=== PATIENT | female | born 1995 | race Caucasian/White ===

== ENCOUNTER 2019-08-04 17:22 | Emergency (ER) | payer OTHER, SELFPAY ==
--- NOTE | ~2019-08-04 | CT_ITS ---
EXAMINATION: CT abdomen pelvis wo con DATE: 08/04/2019 18:14 INDICATION: Left flank pain TECHNIQUE: Computed tomography (CT) of the abdomen and pelvis was performed without intravenous contr ast. Automated exposure control and iterative reconstruction technique were employed. The dose-length product was 1756.65 mGy-cm. COMPARISON: None FINDINGS: Lung bases are clear. Heart size is normal. No pericardial or pleural effusion. Liver, gallbladder, s pleen, pancreas and bilateral adrenal glands are normal. Bilateral kidneys and ureters are normal wit h no urolithiasis, hydroureteronephrosis or perinephric/ureteral stranding. Partially decompressed bl adder, anteverted uterus and bilateral adnexa are unremarkable. Bowels including the appendix are nor mal. No free intraperitoneal gas or fluid. No pathologically enlarged abdominal or pelvic lymphadenop athy. Multiple Schmorl's nodes in the lumbar and mid to lower thoracic spine. 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 IMPRESSION: 1. No urolithiasis or acute intra-abdominal/pelvic process. Reviewed, dictated and finalized at location A.
[2019-08-04 17:33] VITALS: BP 143/90; PULSE 80; RESP 15; TEMP 36.8; O2SAT 98
--- NOTE | 2019-08-04 17:33 | ED.ABDPAIN ---
HPI - Abdominal Pain General Chief Complaint: Abdominal Pain <Chester Iqbal PA-C - Last Filed: 08/04/19 18:57> Stated Complaint: abd pain <Chester Iqbal PA-C - Last Filed: 08/04/19 18:57> Time Seen by Provider: 08/04/19 17:33 <AMELIA Robles Last Filed: 08/04/19 18:57> Source: patient <Chester Iqbal PA-C - Last Filed: 08/04/19 18:57> Mode of arrival: ambulatory <Chester Iqbal PA-C - Last Filed: 08/04/19 18:57> Limitations: no limitations <Chester Iqbal PA-C - Last Filed: 08/04/19 18:57> History of Present Illness HPI narrative: Patient is a 23-year-old male who presents to emergency department for evaluation of generalized abdominal pain that began today has had similar occurrences in the past with recent hospitalization had upper EGD was sent home with Berta. Patient denies any diarrhea rectal bleeding melena notes he has had a few episodes of emesis patient in the room on arrival with mild discomfort of the abdomen patient otherwise in no distress patient notes that symptoms are worse with p.o. intake activity and movement <Chester Iqbal PA-C - Last Filed: 08/04/19 18:57> Related Data Allergies/Adverse Reactions: Allergies Allergy/AdvReac Type Severity Reaction Status Date / Time amoxicillin Allergy Unknown Nausea and Verified 12/11/18 19:24 Vomiting <Chester Iqbal PA-C - Last Filed: 08/04/19 18:57> Review of Systems Review of Systems: All systems reviewed & are unremarkable except as noted in HPI and below <Chester Iqbal PA-C - Last Filed: 08/04/19 18:57> [facility] Surgical History Surgical History: Surgical History (Updated 08/04/19 @ 17:34 by Chester Iqbal PA-C) History of endoscopy <AMELIA Robles Last Filed: 08/04/19 18:57> Social History Social History: Social History Gender identity (if verbalized by the patient): Female <AMELIA Robles Last Filed: 08/04/19 18:57> Exam Narrative: Exam Narrative: GENERAL: Well-appearing, well-nourished, and mild pain HEAD: Normocephalic, atraumatic. EYES: PERRLA and EOMI. ENT: Nares clear, no rhinorrhea or epistaxis. Mucous membranes moist. CHEST: Clear to auscultation. No respiratory distress. No wheezes rales or rhonchi HEART: Regular rate and rhythm. No murmur heard. Normal peripheral pulses. ABDOMEN: Soft, generalized tenderness, nondistended EXTREMITIES: Normal range of motion. No edema. SKIN: Warm, dry, no rash. NEURO: No focal deficits. Alert and oriented x3. Cranial nerves II through XII grossly intact PSYCH: Normal mood and affect. <AMELIA Robles Last Filed: 08/04/19 18:57> Course Course Emergency Course: Patient in the room at this time in no distress without high risk changes no vomiting after interventions feeling much better sleeping in the room for long. Patient notes he will get his medications filled and follow-up with his insurance claims processor provided with reasons to return and agrees to do so if symptoms worsen felt appropriate for outpatient reevaluation <AMELIA Robles Last Filed: 08/04/19 18:57> Vital Signs Vital signs: Vital Signs Temperature 98.2 F 08/04/19 17:33 Pulse Rate 80 08/04/19 17:33 Respiratory Rate 15 08/04/19 17:33 Blood Pressure 143/90 H 08/04/19 17:33 Pulse Oximetry 98 08/04/19 17:33 Temperature 98.2 F 08/04/19 17:33 Pulse Rate 70 08/04/19 19:04 Respiratory Rate 18 08/04/19 19:04 Blood Pressure 122/80 08/04/19 19:04 Pulse Oximetry 100 08/04/19 19:04 <AMELIA Robles Last Filed: 08/04/19 18:57> Vital Signs Temperature 98.2 F 08/04/19 17:33 Pulse Rate 80 08/04/19 17:33 Respiratory Rate 15 08/04/19 17:33 Blood Pressure 143/90 H 08/04/19 17:33 Pulse Oximetry 98 08/04/19 17:33 Temperature 98.2 F 08/04/19 17:33 Pulse Rate 70 06
[2019-08-04 17:41] LABS: Basophils Absolute Auto 0.1 K/mm3 (0.0-0.1); Basophils Percent Auto 0.7 % (0.2-1.2); Eosinophils Absolute Auto 0.2 K/mm3 (0-0.3); Eosinophils Percent Auto 1.5 % (0-4.4); Hematocrit 43.8 % (37.0-47.0); Hemoglobin 14.3 g/dL (12.0-15.0); Immature Granulocyte Absolute 0.03 K/mm3 (0.00-0.031); Immature Granulocyte Percent A 0.3 % (0-0.5); Lymphocytes Absolute Auto 2.61 K/mm3 (0.9-3.2); Mean Corpuscular HGB Conc 32.6 g/dl (32-36); Mean Corpuscular Volume 85.7 fl (80-100); Mean Platelet Volume 9.6 fl (7.4-10.4); Monocytes Absolute Auto 0.7 K/mm3 (0.1-0.6); Monocytes Percent Auto 6.3 % (2.6-8.5); Neutrophils Absolute Auto 7.3 K/mm3 (1.3-6.7); Neutrophils Percent Auto 67.2 % (45.5-73.1); Platelet Count Result 359 k/mm3 (150-375); Red Blood Count 5.11 M/mm3 (4.2-5.4); Red Cell Distribution Width 13.8 % (11.5-14.5); White Blood Count 10.9 K/mm3 (4.5-10.0)
[2019-08-04 17:49] LABS: Add Urine Microscopic? YES; Appearance Urine Clear (Clear); Bacteria Urine Trace /hpf; Bilirubin Urine Negative (Negative); Blood Urine Negative (Negative); Color Urine Yellow (Yellow); Glucose Urine UA Negative (Negative); Ketones Urine Negative (Negative); Leukocyte Esterase Ur 2+ LEU/UL (Negative); Mucus Urine Heavy /lpf; Nitrate Urine Negative (Negative); Protein Urine 1+ mg/dL (Negative); Renal Epithelial Cells Urine Rare /hpf (None Seen); Squamous Epithelial Cell Urine Many /hpf (Few); Urobilinogen Urine Negative mg/dL (<2.0)
[2019-08-04 17:52] LABS: Alanine Aminotransferase 25 U/L (4-35); Albumin Level 4.4 g/dL (3.5-5.1); Alkaline Phosphatase 69 U/L (38-126); Aspartate Amino Transferase 26 U/L (14-36); Bilirubin,Total 0.7 mg/dL (0.2-1.3); Blood Urea Nitrogen 10 mg/dL (7-17); Calcium 9.3 mg/dL (8.4-10.2); Carbon Dioxide 29 mmol/L (22-30); Chloride 105 mmol/L (98-107); Estimated CRCL calculation 133 ml/min; Estimated Glomerular Filt Rate > 60; Glucose 99 mg/dL (65-105); Lipase 92 U/L (23-300); Potassium 3.8 mmol/L (3.4-5.0); Sodium 139 mmol/L (137-145)
[2019-08-04 17:55] LABS: Specific Grav Ur 1.033 (1.001-1.035)
[2019-08-04] MEDS: SODIUM CHLORIDE 0.9% IV 1,000 ML 999 ML IV CONT (18:24)
[2019-08-04] MEDS: FAMOTIDINE 20 MG/2 ML VIAL IV PUSH (18:24)
[2019-08-04 18:27] VITALS: BP 108/74; PULSE 77; RESP 17; O2SAT 100
[2019-08-04] MEDS: AZITHROMYCIN 250 MG TABLET 1000 MG PO (19:02)
[2019-08-04] MEDS: metroNIDAZOLE 250 MG TABLET 2000 MG PO (19:03)
[2019-08-04 19:04] VITALS: BP 122/80; PULSE 70; RESP 18; O2SAT 100
--- NOTE | 2019-08-11 09:16 | PC.NURSE ---
LATE ENTRY This note is being entered to document information to the patient's record. The following information was omitted on 08/04/2019, by Livier Eldridge RN. 1000MLS/1 L NS infused, 0 Volume left in container. NS Stop time: 1854/DEBI WOODWARD.
== END 2019-08-04 19:15 | disposition home or self-care (01) ==
LOC: ANHED 17:40
PROVIDERS: Emergency Medicine; Emergency Medicine Emergency Medical Services; Emergency Provider Emergency Medicine
DX: R10.84 Generalized abdominal pain (principal)
CPT/HCPCS: 36415; 74176; 80053; 81001; 81025; 83690; 85025; 87070; 87086; 87088; 87491; 87591; 87808; 96365; 96368; 96375; 99284; A9270; J0131; J0696; J7030

== ENCOUNTER 2019-09-09 17:22 | Emergency (ER) | payer OTHER, SELFPAY ==
--- NOTE | ~2019-09-09 | XR_ITS ---
EXAMINATION: XR hand RT 2V INDICATION: Right hand pain TECHNIQUE: Two views of the right hand are obtained. COMPARISON: None available FINDINGS: There is no fracture, dislocation, or subluxation. The bones, soft tissues, and joint space s are normal. IMPRESSION: 1. No acute osseous abnormality. Reviewed, dictated and finalized at location A.
--- NOTE | ~2019-09-09 | XR_ITS ---
EXAMINATION: XR hip RT min 2V DATE: 09/09/2019 19:14 INDICATION: Right hip pain TECHNIQUE: Two views of the right hip were obtained. COMPARISON: None. FINDINGS: Bone alignment is normal. There is no fracture. The soft tissues are unremarkable. IMPRESSION: 1. No acute osseous abnormality. Reviewed, dictated and finalized at location A.
--- NOTE | ~2019-09-09 | XR_ITS ---
EXAMINATION: XR lumbar spine 2-3V DATE: 09/09/2019 19:15 INDICATION: Back pain after fall TECHNIQUE: Anteroposterior and lateral views of the lumbar spine, and cone-down lateral view of the l umbosacral junction were obtained. COMPARISON: None. FINDINGS: There is no fracture, dislocation, or subluxation. The vertebral body heights, alignment, a nd intervertebral disc spaces are normal. The paravertebral soft tissues are unremarkable. IMPRESSION: 1. No acute osseous abnormality. Reviewed, dictated and finalized at location A.
[2019-09-09 17:52] VITALS: BP 130/87; PULSE 80; RESP 18; TEMP 37; O2SAT 100
[2019-09-09 18:17] LABS: Add Urine Microscopic? YES; Appearance Urine Clear (Clear); Bacteria Urine Trace /hpf; Bilirubin Urine Negative (Negative); Blood Urine Negative (Negative); Color Urine Yellow (Yellow); Glucose Urine UA Negative (Negative); Ketones Urine Negative (Negative); Leukocyte Esterase Ur Negative LEU/UL (Negative); Mucus Urine Few /lpf; Nitrate Urine Negative (Negative); Protein Urine 1+ mg/dL (Negative); RBC Urine 0-2 /hpf (0-2); Squamous Epithelial Cell Urine Moderate /hpf (Few); WBC Urine 0-3 /hpf
[2019-09-09 18:19] LABS: Specific Grav Ur 1.031 (1.001-1.035)
--- NOTE | 2019-09-09 18:54 | PC.NURSE ---
x-RAY CALLED AT THIS TIME TO INFORM [employer] TECHNICIAN THAT PATIENT REFUSED HIP XRAY. PATIENT REPORTED RIGHT HIP PAIN AT TIME OF TRIAGE MULTIPLE TIMES DUE TO FALL YESTERDAY
--- NOTE | 2019-09-09 20:55 | PC.NURSE ---
pt to desk saying she will be back tomorrow.
== END 2019-09-09 20:15 | disposition left against medical advice (07) ==
LOC: ANHED 21:05
PROVIDERS: Emergency Provider Emergency Medicine; PCP Nurse Practitioner Women's Health
DX: Z53.21 Procedure and treatment not carried out due to patient leaving prior to being seen by health care provider (principal)
CPT/HCPCS: 72100; 73120; 73502; 81001; 81025; 99199

== ENCOUNTER 2021-03-25 14:37 | Emergency (ER) | payer OTHER, SELFPAY ==
--- NOTE | ~2021-03-25 | US_ITS ---
EXAMINATION: US OB <=14 wk fetus w TV DATE: 03/25/2021 16:08 INDICATION: Vomiting during first trimester . TECHNIQUE: Real-time pelvic ultrasound utilizing both a transvaginal and transabdominal probe was pe rformed. The interpreting radiologist was not present for the study. COMPARISON: None. FINDINGS: The uterus measures 9.7 x 6.5 x 6.0 cm. There is an intrauterine gestational sac. A yolk sac and fet al pole are identified. The crown rump length measures 1.7 cm, which correlates with an estimated ges tational age of 8 weeks and 0 days. heart motion is identified measuring 155 beats per minute ( bpm) by M-mode Doppler. The right and left ovaries are not visualized. There is no free fluid in the pelvis. IMPRESSION: 1. Single living fetus with heart of 155 bpm. 2. Gestational age by ultrasound of 8 weeks 0 day(s) +/- 5 day(s) with ultrasound estimated date of delivery (JENNIFER) of 11/04/2021. Reviewed, dictated and finalized at location A. OGRAPH OPERATOR IMPRESSION: 1. Single living fetus with heart of 155 bpm. 2. Gestational age by ultrasound of 8 weeks 0 day(s) +/- 5 day(s) with ultraso und estimated date of delivery (JENNIFER) of 11/04/2021.
[2021-03-25 14:45] VITALS: BP 128/81; PULSE 87; RESP 18; TEMP 37.1; O2SAT 100
--- NOTE | 2021-03-25 15:42 | ED.NAVMDI ---
HPI - Nausea/Vomiting/Diarrhea General Chief complaint: Nausea/Vomiting/Diarrhea <aNima Canales PA-C - Last Filed: 03/25/21 20:17> Stated complaint: vomiting <AMELIA Flannery Last Filed: 03/25/21 20:17> Time Seen by Provider: 03/25/21 15:03 <Naima Canales PA-C - Last Filed: 03/25/21 20:17> Source: patient <AMELIA Flannery Last Filed: 03/25/21 20:17> Mode of arrival: ambulatory <AMELIA Flannery Last Filed: 03/25/21 20:17> Limitations: no limitations <AMELIA Flannery Last Filed: 03/25/21 20:17> History of Present Illness HPI Narrative: This is a 25-year-old G1, P0 about 8 weeks by LMP that presents to the emergency department for nausea and vomiting over the last week. Reports she has been seen by Dr. Bernstein for this. He prescribed Zofran, she has not taken this yet as she has bad reactions to medications and was scared to. Also reports she has had some abnormal vaginal discharge. Denies fever, abdominal pain, dysuria, or vaginal bleeding. <Naima Canales PA-C - Last Filed: 03/25/21 20:17> Related Data Home medications: Home Medications Medication Instructions Recorded Confirmed vitamins-iron fumarate 65 1 tablet PO DAILY 03/17/21 03/17/21 mg iron-folic acid 1 mg tablet <AMELIA Flannery Last Filed: 03/25/21 20:17> Allergies/Adverse reactions: Allergies Allergy/AdvReac Type Severity Reaction Status Date / Time buspirone [From BuSpar] Allergy Mild Dizziness Verified 03/25/21 17:07 amoxicillin Allergy Unknown Nausea and Verified 03/25/21 17:07 Vomiting duloxetine [From Cymbalta] Allergy Hallucinati Verified 03/25/21 17:07 ng <AMELIA Flannery Last Filed: 03/25/21 20:17> Review of Systems Review of Systems: CONSTITUTIONAL: Denies fever GASTROINTESTINAL: Reports nausea and vomiting. Denies abdominal pain GENITOURINARY: Denies dysuria or hematuria. <Naima Canales PA-C - Last Filed: 03/25/21 20:17> All systems reviewed & are unremarkable except as noted in HPI and below <Naima Canales PA-C - Last Filed: 03/25/21 20:17> PMFSH Past Medical History Medical History: Medical History (Updated 03/25/21 @ 19:10 by Naima Canales PA-C) Anxiety and depression Major depressive disorder Suppression of menstruation <Naima Canales PA-C - Last Filed: 03/25/21 20:17> Surgical History Surgical History: Surgical History (Updated 03/17/21 @ 09:29 by Lydia Garner Nicole) History of endoscopy [place] teeth removed <Naima Canales PA-C - Last Filed: 03/25/21 20:17> Family History Family History: Family History (Updated 03/17/21 @ 09:31 by REIANLDO Raza) Mother Heart disease Other Ovarian carcinoma maternal aunt Grandparent Cerebrovascular accident maternal grandmother Acute myocardial infarction maternal grandmother <Naima Canales PA-C - Last Filed: 03/25/21 20:17> Social History Social History: Social History (Updated 03/17/21 @ 09:32 by Lydia Garner Nicole) Smoking status: Never smoker Alcohol intake: never Substance use: former Substance use type: marijuana Last use: 07/2020 Additional living arrangements comments: grandfather Gender identity (if verbalized by the patient): Female Sexual Orientation (if Verbalized by the Patient): Straight or Heterosexual <Naima Canales PA-C - Last Filed: 03/25/21 20:17> Exam Narrative: GENERAL: Well-appearing, well-nourished, and in no acute distress. HEAD: Normocephalic, atraumatic. EYES: EOMI. CHEST: Clear to auscultation. No respiratory distress. No wheezes rales or rhonchi HEART: Regular rate and rhythm. No murmur heard. Normal peripheral pulses. ABDOMEN: Soft, nontender, nondistended, normal active bowel sounds. No CVA tenderness EXTREMITIES: Normal range of motion. No edema. SKIN: Warm, dry, no rash. NEURO: No focal deficits.
[2021-03-25 16:40] LABS: Add Urine Microscopic? YES; Appearance Urine Clear (Clear); Bacteria Urine 1+ /hpf; Bilirubin Urine Negative (Negative); Color Urine Amber (Yellow); Glucose Urine UA Negative (Negative); Ketones Urine Trace mg/dL (Negative); Leukocyte Esterase Ur Trace LEU/UL (Negative); Mucus Urine Heavy /lpf; Nitrate Urine Negative (Negative); Protein Urine 1+ mg/dL (Negative); Specific Grav Ur 1.028 (1.001-1.035); Squamous Epithelial Cell Urine Many /hpf (Few)
[2021-03-25] MEDS: FAMOTIDINE 20 MG/2 ML VIAL IV PUSH (16:40)
[2021-03-25 16:44] LABS: Blood Urine Negative (Negative)
[2021-03-25 16:45] LABS: Basophils Percent Auto 0.3 % (0.2-1.2); Eosinophils Absolute Auto 0.2 K/mm3 (0-0.3); Hematocrit 44.5 % (37.0-47.0); Hemoglobin 14.8 g/dL (12.0-15.0); Immature Granulocyte Absolute 0.02 K/mm3 (0.00-0.031); Immature Granulocyte Percent A 0.2 % (0-0.5); Lymphocytes Absolute Auto 1.94 K/mm3 (0.9-3.2); Lymphocytes Percent Auto 21.7 % (18.3-44.2); Mean Corpuscular HGB Conc 33.3 g/dl (32-36); Mean Corpuscular Hemoglobin 28.7 pg (26-34); Mean Corpuscular Volume 86.4 fl (80-100); Mean Platelet Volume 8.9 fl (7.4-10.4); Monocytes Absolute Auto 0.7 K/mm3 (0.1-0.6); Monocytes Percent Auto 7.5 % (2.6-8.5); Neutrophils Absolute Auto 6.1 K/mm3 (1.3-6.7); Neutrophils Percent Auto 68.3 % (45.5-73.1); Platelet Count Result 308 k/mm3 (150-375); Red Blood Count 5.15 M/mm3 (4.2-5.4); Red Cell Distribution Width 13.4 % (11.5-14.5); White Blood Count 8.9 K/mm3 (4.5-10.0)
[2021-03-25] MEDS: SODIUM CHLORIDE 0.9% IV 1,000 ML 999 ML IV CONT (16:52)
[2021-03-25] MEDS: ONDANSETRON INJ 4 MG/2 ML VIAL IV PUSH (16:52)
[2021-03-25 16:54] LABS: Alanine Aminotransferase 36 U/L (4-35); Albumin Level 4.9 g/dL (3.5-5.1); Alkaline Phosphatase 68 U/L (38-126); Anion Gap 8 mmol/L (8-16); Aspartate Amino Transferase 39 U/L (14-36); Bilirubin,Total 0.9 mg/dL (0.2-1.3); Blood Urea Nitrogen 7 mg/dL (7-17); Calcium 9.8 mg/dL (8.4-10.2); Carbon Dioxide 22 mmol/L (22-30); Chloride 106 mmol/L (98-107); Estimated CRCL calculation 212 ml/min; Estimated Glomerular Filt Rate > 60; Glucose 86 mg/dL (65-110); Lipase 76 U/L (23-300); Potassium 3.8 mmol/L (3.4-5.0); Sodium 136 mmol/L (137-145)
[2021-03-25 17:14] VITALS: BP 104/62; BP 106/68; BP 106/88; PULSE 76; PULSE 86
--- NOTE | 2021-03-25 19:28 | PC.NURSE ---
patient refusing strep screen at this time. PA aware.
[2021-03-25 20:23] VITALS: BP 116/68; PULSE 77; RESP 16; TEMP 36.3; O2SAT 98
== END 2021-03-25 20:24 | disposition home or self-care (01) ==
PROVIDERS: Physician Assistant; Emergency Provider Emergency Medicine; PCP Physician Assistant
DX: O21.9 Vomiting of pregnancy, unspecified (principal); O98.811 Other maternal infectious and parasitic diseases complicating pregnancy, first trimester; B37.3 Candidiasis of vulva and vagina; R82.71 Bacteriuria; Z3A.08 8 weeks gestation of pregnancy
CPT/HCPCS: 36415; 76801; 76817; 80053; 81001; 81025; 83690; 84702; 85025; 87070; 87086; 87491; 87591; 87808; 96361; 96374; 96375; 99284; J2405; J7030

== ENCOUNTER 2021-03-30 14:03 | Outpatient (CLI) | payer OTHER, SELFPAY ==
[2021-03-30 15:36] LABS: Basophils Percent Auto 0.5 % (0.2-1.2); Eosinophils Absolute Auto 0.2 K/mm3 (0-0.3); Eosinophils Percent Auto 1.7 % (0-4.4); Hematocrit 45.2 % (37.0-47.0); Hemoglobin 14.2 g/dL (12.0-15.0); Immature Granulocyte Absolute 0.03 K/mm3 (0.00-0.031); Immature Granulocyte Percent A 0.3 % (0-0.5); Immature Platelet Fraction Pct 2.4 % (0.9-11.2); Lymphocytes Absolute Auto 2.24 K/mm3 (0.9-3.2); Lymphocytes Percent Auto 25.4 % (18.3-44.2); Mean Corpuscular HGB Conc 31.4 g/dl (32-36); Mean Corpuscular Hemoglobin 28.7 pg (26-34); Mean Corpuscular Volume 91.3 fl (80-100); Mean Platelet Volume 9.4 fl (7.4-10.4); Monocytes Absolute Auto 0.5 K/mm3 (0.1-0.6); Monocytes Percent Auto 6.1 % (2.6-8.5); Neutrophils Absolute Auto 5.8 K/mm3 (1.3-6.7); Platelet Count Result 308 k/mm3 (150-375); Red Blood Count 4.95 M/mm3 (4.2-5.4); Red Cell Distribution Width 13.6 % (11.5-14.5); White Blood Count 8.8 K/mm3 (4.5-10.0)
[2021-03-30 15:53] LABS: Hypochromasia 1+ (NORMAL); Platelet Estimate Adequate (Adequate)
[2021-03-30 16:29] LABS: HIV 1/2 Ab P24 Ag Result Negative (Negative)
[2021-03-30 16:56] LABS: Hepatitis B Surface Antigen Negative (Negative); Rubella IgG Antibody < 0.6 IU/ML
[2021-03-31 07:28] LABS: Rapid Plasma Reagin Non-Reactive (NonReactive)
[2021-04-01 11:35] LABS: CMV IgG Antibody <0.60 U/mL (<0.60)
[2021-04-12 15:46] LABS: CF Result NEGATIVE (NEGATIVE); Ethnicity NG
== END 2021-03-30 14:04 | disposition home or self-care (01) ==
LOC: ANHLAB 14:06
PROVIDERS: PCP Physician Assistant; Visit Provider Obstetrics & Gynecology
DX: N94.89 Other specified conditions associated with female genital organs and menstrual cycle (principal)
CPT/HCPCS: 36415; 81220; 84702; 85025; 85055; 86592; 86644; 86703; 86747; 86762; 86787; 86850; 86900; 86901; 87086; 87088; 87340; G0432

== ENCOUNTER 2021-03-31 10:51 | Outpatient (CLI) | payer OTHER, SELFPAY ==
[2021-03-31 13:30] LABS: Glucose 1 Hour PP 50gm Dose 77 mg/dL
== END 2021-03-31 10:52 | disposition home or self-care (01) ==
LOC: ANHLAB 10:53
PROVIDERS: PCP Physician Assistant; Visit Provider Obstetrics & Gynecology
DX: N94.89 Other specified conditions associated with female genital organs and menstrual cycle (principal)
CPT/HCPCS: 36415; 82947

== ENCOUNTER 2021-04-09 11:34 | Emergency (ER) | payer OTHER, SELFPAY ==
--- NOTE | ~2021-04-09 | US_ITS ---
EXAMINATION: US OB <= 14 weeks fetus DATE: 04/09/2021 15:33 INDICATION: Vaginal spotting TECHNIQUE: Real-time transabdominal obstetric ultrasound. FINDINGS: Comparison to multiple prior studies sequentially, with oldest reviewed study dated 2021. The uterus measures 10 x 6.4 x 6.6 cm. There is an intrauterine gestational sac, with pole iden tified. The crown rump length measures 3.18 cm which corresponds to 10 weeks 1 day gestational age.. . heart tones are identified measuring 165 bpm. No evidence for subchorionic hemorrhage. Ovar ies are not visualized. IMPRESSION: 1. SL IUP with an EGA of 10 weeks, 1 days (EDC by initial ultrasound of 11/04/2021). Reviewed, dictated and finalized at location A. NDER INSPECTOR AND TESTER IMPRESSION: 1. SL IUP with an EGA of 10 weeks, 1 days (EDC by initial ultrasound of 11/05/19 22).
[2021-04-09 11:51] VITALS: BP 113/68; PULSE 82; RESP 16; TEMP 36.6; O2SAT 98
[2021-04-09 12:29] LABS: Basophils Percent Auto 0.5 % (0.2-1.2); Eosinophils Absolute Auto 0.1 K/mm3 (0-0.3); Eosinophils Percent Auto 1.3 % (0-4.4); Hematocrit 43.7 % (37.0-47.0); Hemoglobin 14.5 g/dL (12.0-15.0); Immature Granulocyte Absolute 0.02 K/mm3 (0.00-0.031); Immature Granulocyte Percent A 0.3 % (0-0.5); Lymphocytes Absolute Auto 1.63 K/mm3 (0.9-3.2); Lymphocytes Percent Auto 21.4 % (18.3-44.2); Mean Corpuscular HGB Conc 33.2 g/dl (32-36); Mean Corpuscular Hemoglobin 28.7 pg (26-34); Mean Corpuscular Volume 86.4 fl (80-100); Mean Platelet Volume 9.2 fl (7.4-10.4); Monocytes Absolute Auto 0.4 K/mm3 (0.1-0.6); Monocytes Percent Auto 5.4 % (2.6-8.5); Neutrophils Absolute Auto 5.4 K/mm3 (1.3-6.7); Neutrophils Percent Auto 71.1 % (45.5-73.1); Platelet Count Result 298 k/mm3 (150-375); Red Blood Count 5.06 M/mm3 (4.2-5.4); Red Cell Distribution Width 13.9 % (11.5-14.5); White Blood Count 7.6 K/mm3 (4.5-10.0)
--- NOTE | 2021-04-09 12:40 | ED.FEMALEGU ---
HPI - Female Genitourinary General Chief complaint: Vaginal Bleeding Stated complaint: vb Time Seen by Provider: 04/09/21 11:51 Source: patient History of Present Illness HPI Narrative: 25-year-old female presents today with complaints of vaginal bleeding that she noted this morning. Patient states she woke up went to the bathroom and when she wiped there was some light pink on the toilet paper. This is happened to the patient x3 now. Patient also with abdominal cramping 4 out of 10. Related Data Home Medications Medication Instructions Recorded Confirmed vitamins-iron fumarate 65 1 tablet PO DAILY 03/17/21 03/17/21 mg iron-folic acid 1 mg tablet Allergies Allergy/AdvReac Type Severity Reaction Status Date / Time buspirone [From BuSpar] Allergy Mild Dizziness Verified 04/09/21 11:47 amoxicillin Allergy Unknown Nausea and Verified 04/09/21 11:47 Vomiting duloxetine [From Cymbalta] Allergy Hallucinati Verified 04/09/21 11:47 ng Review of Systems Constitutional: Constitutional: Reports as per HPI Cardiovascular: Cardiovascular: Reports no additional cardiovascular complaints Respiratory: Respiratory: Reports no additional respiratory complaints Gastrointestinal: Gastrointestinal: Reports abdominal pain (cramping) and Reports nausea Genitourinary: Genitourinary: Reports abnormal vaginal bleeding (Patient currently about 8 weeks per LMP) PMFSH Past Medical History Medical History Anxiety and depression Major depressive disorder Suppression of menstruation Surgical History Surgical History History of endoscopy [place] teeth removed Family History Family History Mother Heart disease Other Ovarian carcinoma maternal aunt Grandparent Cerebrovascular accident maternal grandmother Acute myocardial infarction maternal grandmother Social History Social History Smoking status: Never smoker Alcohol intake: never Substance use: former Substance use type: marijuana Last use: 07/2020 Additional living arrangements comments: grandfather Gender identity (if verbalized by the patient): Female Sexual Orientation (if Verbalized by the Patient): Straight or Heterosexual Exam Narrative: GENERAL: Well-appearing, well-nourished, and in no acute distress. HEAD: Normocephalic, atraumatic. EYES: PERRLA and EOMI. ENT: Nares clear, no rhinorrhea or epistaxis. Mucous membranes moist. Oropharynx without tonsillar hypertrophy exudate or other lesions. Bilateral TMs pearly ashby nonbulging NECK: Supple. No adenopathy or masses. No carotid bruits or JVD CHEST: Clear to auscultation. No respiratory distress. No wheezes rales or rhonchi HEART: Regular rate and rhythm. No murmur heard. Normal peripheral pulses. ABDOMEN: Soft, nontender, nondistended, normal active bowel sounds. : Pelvic exam: mold stripper presents. external genitalia with out lesions. Vagina: negative for discharge, negative for bleeding, Cervical os closed. Negative for cervical motion tenderness. EXTREMITIES: Normal range of motion. No edema. SKIN: Warm, dry, no rash. NEURO: No focal deficits. Alert and oriented x3. PSYCH: Normal mood and affect. Course Course Emergency Course: Patient without nausea after IVF and zofran. No bleeding noted during stay. See US results. Patient to be discharged home with zofran and to follow up with OB. Vital Signs Vital signs: Vital Signs Temperature 36.6 C 04/09/21 11:51 Pulse Rate 82 04/09/21 11:51 Respiratory Rate 16 04/09/21 11:51 Blood Pressure 113/68 04/09/21 11:51 Pulse Oximetry 98 04/09/21 11:51 Temperature 36.6 C 04/09/21 11:51 Pulse Rate 86 04/09/21 16:16 Respiratory Rate 17
[2021-04-09 13:39] LABS: Alanine Aminotransferase 20 U/L (4-35); Albumin Level 4.4 g/dL (3.5-5.1); Alkaline Phosphatase 59 U/L (38-126); Anion Gap 12 mmol/L (8-16); Aspartate Amino Transferase 24 U/L (14-36); Bilirubin,Total 0.6 mg/dL (0.2-1.3); Blood Urea Nitrogen 6 mg/dL (7-17); Calcium 9.8 mg/dL (8.4-10.2); Carbon Dioxide 21 mmol/L (22-30); Chloride 106 mmol/L (98-107); Estimated CRCL calculation 184 ml/min; Estimated Glomerular Filt Rate > 60; Glucose 87 mg/dL (65-110); Potassium 3.9 mmol/L (3.4-5.0); Sodium 139 mmol/L (137-145)
[2021-04-09] MEDS: LACTATED RINGERS 1,000 ML 999 ML IV CONT (14:13)
[2021-04-09 16:16] VITALS: BP 138/76; PULSE 86; RESP 17; O2SAT 99
== END 2021-04-09 16:17 | disposition home or self-care (01) ==
PROVIDERS: Emergency Medicine; Emergency Provider Nurse Practitioner Family; PCP Obstetrics & Gynecology
DX: O20.9 Hemorrhage in early pregnancy, unspecified (principal); O21.9 Vomiting of pregnancy, unspecified; Z3A.10 10 weeks gestation of pregnancy
CPT/HCPCS: 36415; 76801; 80053; 84702; 85025; 85461; 99284; J7120

== ENCOUNTER 2021-04-29 13:45 | Emergency (ER) | payer OTHER, SELFPAY ==
[2021-04-29 13:51] VITALS: BP 119/69; PULSE 71; RESP 18; TEMP 36.1; O2SAT 100
[2021-04-29 14:13] LABS: Basophils Percent Auto 0.4 % (0.2-1.2); Eosinophils Absolute Auto 0.1 K/mm3 (0-0.3); Eosinophils Percent Auto 1.6 % (0-4.4); Hematocrit 40.7 % (37.0-47.0); Hemoglobin 13.7 g/dL (12.0-15.0); Immature Granulocyte Absolute 0.02 K/mm3 (0.00-0.031); Immature Granulocyte Percent A 0.2 % (0-0.5); Lymphocytes Percent Auto 21.9 % (18.3-44.2); Mean Corpuscular HGB Conc 33.7 g/dl (32-36); Mean Corpuscular Hemoglobin 28.9 pg (26-34); Mean Corpuscular Volume 85.9 fl (80-100); Mean Platelet Volume 9.4 fl (7.4-10.4); Monocytes Absolute Auto 0.6 K/mm3 (0.1-0.6); Monocytes Percent Auto 7.8 % (2.6-8.5); Neutrophils Absolute Auto 5.6 K/mm3 (1.3-6.7); Neutrophils Percent Auto 68.1 % (45.5-73.1); Platelet Count Result 281 k/mm3 (150-375); Red Blood Count 4.74 M/mm3 (4.2-5.4); Red Cell Distribution Width 13.7 % (11.5-14.5); White Blood Count 8.2 K/mm3 (4.5-10.0)
[2021-04-29 14:25] LABS: Alanine Aminotransferase 25 U/L (4-35); Albumin Level 4.4 g/dL (3.5-5.1); Alkaline Phosphatase 54 U/L (38-126); Anion Gap 10 mmol/L (8-16); Aspartate Amino Transferase 28 U/L (14-36); Bilirubin,Total 0.5 mg/dL (0.2-1.3); Blood Urea Nitrogen 6 mg/dL (7-17); Carbon Dioxide 22 mmol/L (22-30); Chloride 106 mmol/L (98-107); Estimated CRCL calculation 235 ml/min; Estimated Glomerular Filt Rate > 60; Glucose 66 mg/dL (65-110); Lipase 73 U/L (23-300); Potassium 3.9 mmol/L (3.4-5.0); Sodium 138 mmol/L (137-145)
[2021-04-29 15:22] LABS: Add Urine Microscopic? YES; Amorphous Sediment Urine Moderate; Appearance Urine Turbid (Clear); Bacteria Urine Trace /hpf; Bilirubin Urine Negative (Negative); Blood Urine Negative (Negative); Color Urine Yellow (Yellow); Glucose Urine UA Negative (Negative); Ketones Urine Negative (Negative); Leukocyte Esterase Ur Trace LEU/UL (Negative); Mucus Urine Heavy /lpf; Nitrate Urine Negative (Negative); Protein Urine Negative (Negative); Squamous Epithelial Cell Urine Moderate /hpf (Few); WBC Urine 0-3 /hpf
[2021-04-29 15:24] LABS: Specific Grav Ur 1.033 (1.001-1.035)
[2021-04-29 16:05] VITALS: BP 110/72; PULSE 80; RESP 16; O2SAT 100
[2021-04-29] MEDS: SODIUM CHLORIDE 0.9% IV 1,000 ML 999 ML IV CONT (17:14)
--- NOTE | 2021-04-29 17:14 | PC.NURSE ---
Pt refusing promethazine because she googled the medication and is worried that it will cause respiratory depression in her baby. EDP notified and pt reassured the medication is safe. Pt still wishes to refuse and asks for zofran instead. EDP notified and zofran ordered.
[2021-04-29] MEDS: ONDANSETRON INJ 4 MG/2 ML VIAL IV PUSH (17:20)
--- NOTE | 2021-04-29 17:55 | ED.NAVMDI ---
HPI - Nausea/Vomiting/Diarrhea General Chief complaint: Nausea/Vomiting/Diarrhea Stated complaint: vomiting Time Seen by Provider: 04/29/21 16:06 History of Present Illness HPI Narrative: Patient is a 25-year-old female who presents ER with nausea and vomiting. Has had issues with this throughout her . She is [address] weeks [address] Bernstein. Reports she usually has to get fluid to help with her symptoms. She has not taken her antiemetics over the last day despite being nauseous. Reports she is having some left-sided chest discomfort that is worse with moving and direct palpation. Lateral to the breast. No difficulty breathing. No runny nose or sore throat cough. Patient reports she has a lot of anxiety about taking medications. Related Data Home Medications Medication Instructions Recorded Confirmed vitamins-iron fumarate 65 1 tablet PO DAILY 03/17/21 04/21/21 mg iron-folic acid 1 mg tablet Allergies Allergy/AdvReac Type Severity Reaction Status Date / Time buspirone [From BuSpar] Allergy Mild Dizziness Verified 04/21/21 08:57 amoxicillin Allergy Unknown Nausea and Verified 04/21/21 08:57 Vomiting duloxetine [From Cymbalta] Allergy Hallucinati Verified 04/21/21 08:57 ng Review of Systems Review of Systems: All systems reviewed & are unremarkable except as noted in HPI and below Constitutional: Constitutional: Denies chills, Denies fever(s) and Denies weakness ENT: Denies nasal congestion and Denies sore throat Cardiovascular: Cardiovascular: Reports chest pain, Denies rapid heart rate and Denies radiating jaw, neck or arm pain Respiratory: Respiratory: Denies cough and Denies dyspnea Gastrointestinal: Gastrointestinal: Denies abdominal pain, Reports nausea and Reports vomiting Genitourinary: Genitourinary: Denies abnormal vaginal bleeding, Denies nocturia, Denies dysuria and Denies flank pain PMFSH Past Medical History Medical History Anxiety and depression Major depressive disorder Suppression of menstruation Surgical History Surgical History History of endoscopy [place] teeth removed Family History Family History Mother Heart disease Other Ovarian carcinoma maternal aunt Grandparent Cerebrovascular accident maternal grandmother Acute myocardial infarction maternal grandmother Social History Social History (Reviewed 04/21/21 @ 08:59 by Lydia Garner [facility]) Smoking status: Never smoker Alcohol intake: never Substance use: former Substance use type: marijuana Last use: 07/2020 Additional living arrangements comments: grandfather Gender identity (if verbalized by the patient): Female Sexual Orientation (if Verbalized by the Patient): Straight or Heterosexual Exam Narrative: GENERAL: Well-appearing, well-nourished, and in no acute distress. HEAD: Normocephalic, atraumatic. CHEST: Clear to auscultation. No respiratory distress. TTP left chest wall with lateral compression. HEART: Regular rate and rhythm. Normal peripheral pulses. ABDOMEN: Soft, nontender, nondistended. EXTREMITIES: Normal range of motion. No edema. SKIN: Warm, dry, no rash. NEURO: Alert and oriented x3. PSYCH: Normal mood and affect. Course Course Emergency Course: Patient nervous about Phenergan because she thinks it could cause respiratory depression in her 13-week fetus. She is educated that that is not the case but she prefers to take Zofran anyways. Labs unremarkable. Patient hydrated. Antiemetics given. Discharge home. Vital Signs Vital signs: Vital Signs Temperature 97.0 F L 04/29/21 13:51 Pulse Rate 71 04/29/21 13:51 Respiratory Rate 18 04/29/21 13:51 Blood Pressure 119/69 04/29/21 13:51 Pulse Oximetry 100 04/29/21 13:51 Temperature 97.
[2021-04-29 18:16] VITALS: BP 105/64; PULSE 77; RESP 16; O2SAT 100
== END 2021-04-29 18:17 | disposition home or self-care (01) ==
PROVIDERS: Emergency Medicine; Emergency Provider Emergency Medicine; PCP Obstetrics & Gynecology
DX: O21.9 Vomiting of pregnancy, unspecified (principal); Z3A.13 13 weeks gestation of pregnancy
CPT/HCPCS: 36415; 80053; 81001; 83690; 85025; 96361; 96374; 99284; J2405; J7030

== ENCOUNTER 2021-05-04 15:05 | Outpatient (CLI) | payer OTHER, SELFPAY | END 2021-05-04 15:06 | disposition home or self-care (01) | LOC: ANHLAB 15:06 | PROVIDERS: PCP Obstetrics & Gynecology; Visit Provider Obstetrics & Gynecology | DX: N39.0 Urinary tract infection, site not specified (principal) | CPT/HCPCS: 87086 ==

== ENCOUNTER 2021-07-15 09:07 | Outpatient (CLI) | payer OTHER, SELFPAY ==
--- NOTE | ~2021-07-15 | US_ITS ---
EXAMINATION: US OB /maternal detail DATE: 07/15/2021 10:42 INDICATION: Previous survey performed at physician's office. Patient unable to complete survey. TECHNIQUE: Multiple obstetric sonographic images performed. FINDINGS: Comparison to multiple prior studies sequentially, with oldest reviewed study dated 022. There is a single living fetus in vertex presentation. The placenta is posterior without placenta pr evia. Amniotic fluid volume is normal. cardiac activity and movement is noted with a heart rate of 135 beats per minute. survey demonstrates normal cerebral ventricles, spine, diaphragm, stomach, kidneys, bladder, th ree-vessel cord and cord insertion. survey is limited for evaluation of cerebellum, cisterna ma gna, nuchal fold and four-chamber heart. The following biometric data were obtained: BPD: 61mm corresponds to gestational age 24 weeks 6 days. Head circumference: 223 mm corresponds to gestational age 24 weeks 6 days. Abdominal circumference: 194 mm corresponds to gestational age 24 weeks 1 days. Femur length: 49 mm corresponds to gestational age 26 weeks 2 days. Head circumference to abdominal circumference ratio: 1.17 (normal range for expected gestational age is 1.04-1.22). Estimated weight: 761 grams +/- 114 grams using Hadlock method, 85.7% by Hadlock method. IMPRESSION: 1: Single living intrauterine with an estimated gestational age of 24weeks 0days by initial ultrasound measurements, with an EDC of 11/04/2021 in vertex presentation. 2. Limited survey as described above. No anatomic abnormalities are identified. Recommen d follow-up attention to the intracranial structures, nuchal fold and four-chamber heart on subsequen t examination. Reviewed, dictated and finalized at location A. IMPRESSION: 1: Single living intrauterine with an estimated gestational age of 24 weeks 0days by initial ultrasound measurements, with an EDC of 11/04/2021 in carmella mima presentation. 2. Limited survey as described above. No anatomic abnormalities ar e identified. Recommend follow-up attention to the intracranial structures, nuc carl fold and four-chamber heart on subsequent examination.
== END 2021-07-15 09:08 | disposition home or self-care (01) ==
PROVIDERS: PCP Obstetrics & Gynecology; Visit Provider Obstetrics & Gynecology
DX: Z36.2 Encounter for other antenatal screening follow-up (principal); Z3A.24 24 weeks gestation of pregnancy
CPT/HCPCS: 76805

== ENCOUNTER 2021-07-29 10:11 | Outpatient (CLI) | payer OTHER, SELFPAY ==
--- NOTE | ~2021-07-29 | US_ITS ---
US OB limited 07/29/2021 10:48 Indication: Follow-up survey. Procedure: High-resolution Limited obstetrical ultrasound Comparison: 07/15/2021 Findings: There is a single living intrauterine in vertex presentation. Placenta is posteri or without previa. heart rate is 133 BPM. Limited survey demonstrates normal cerebral robert tricles, cerebellum, cisterna magna, nuchal fold and four-chamber heart. No anatomic abnormalit ies are seen. Impression: 1: Single living intrauterine in vertex presentation. 2: Normal limited survey. Reviewed, dictated and finalized at location B. Impression: 1: Single living intrauterine in vertex presentation. 2: Normal limited survey.
== END 2021-07-29 10:12 | disposition home or self-care (01) ==
LOC: ANHIMG 10:12
PROVIDERS: PCP Obstetrics & Gynecology; Visit Provider Obstetrics & Gynecology
DX: Z34.92 Encounter for supervision of normal pregnancy, unspecified, second trimester (principal); Z3A.25 25 weeks gestation of pregnancy
CPT/HCPCS: 76815

== ENCOUNTER 2021-08-12 14:04 | Outpatient (CLI) | payer OTHER, SELFPAY ==
[2021-08-12 15:49] LABS: Basophils Percent Auto 0.3 % (0.2-1.2); Eosinophils Absolute Auto 0.1 K/mm3 (0-0.3); Eosinophils Percent Auto 0.8 % (0-4.4); Hematocrit 34.1 % (37.0-47.0); Hemoglobin 11.1 g/dL (12.0-15.0); Immature Granulocyte Absolute 0.04 K/mm3 (0.00-0.031); Immature Granulocyte Percent A 0.4 % (0-0.5); Lymphocytes Absolute Auto 1.74 K/mm3 (0.9-3.2); Lymphocytes Percent Auto 18.8 % (18.3-44.2); Mean Corpuscular HGB Conc 32.6 g/dl (32-36); Mean Corpuscular Hemoglobin 28.6 pg (26-34); Mean Corpuscular Volume 87.9 fl (80-100); Mean Platelet Volume 10.1 fl (7.4-10.4); Monocytes Absolute Auto 0.5 K/mm3 (0.1-0.6); Monocytes Percent Auto 5.4 % (2.6-8.5); Neutrophils Absolute Auto 6.9 K/mm3 (1.3-6.7); Neutrophils Percent Auto 74.3 % (45.5-73.1); Platelet Count Result 248 k/mm3 (150-375); Red Blood Count 3.88 M/mm3 (4.2-5.4); Red Cell Distribution Width 13.6 % (11.5-14.5); White Blood Count 9.3 K/mm3 (4.5-10.0)
[2021-08-12 16:09] LABS: Glucose 1 Hour PP 50gm Dose 132 mg/dL
[2021-08-12 17:19] LABS: HIV 1/2 Ab P24 Ag Result Negative (Negative)
== END 2021-08-12 14:05 | disposition home or self-care (01) ==
LOC: ANHLAB 14:05
PROVIDERS: PCP Obstetrics & Gynecology; Visit Provider Obstetrics & Gynecology
DX: Z34.90 Encounter for supervision of normal pregnancy, unspecified, unspecified trimester (principal)
CPT/HCPCS: 36415; 82947; 85025; 86703; G0432

== ENCOUNTER 2021-08-19 22:40 | Observation (INO) | payer OTHER, SELFPAY ==
--- NOTE | 2021-08-19 22:40 | OBADM ---
This patient, Zoila Gonzalez, admitted to the OB room OB Post 115 for observation. Patient/family oriented to hospital policies and general routines including ID bracelet, bed and alarms, visiting hours, pain management, procedures, bathroom and other care routines, personal items, smoking policy, room service/diet, and visiting hours. Patient/Family are encouraged to report perceived risks to care and to ask questions if they do not understand what they are told or what they should do.
--- NOTE | 2021-08-19 22:40 | PC.NURSE ---
Patient arrived to OB unit. Patient come via personal vehicle from [facility] as a transfer. Patient reports nausea/emesis earlier this evening- reporting 2 total episodes of emesis. Patient states the second episode of emesis she noted pink tinge in emesis. Patient states she has history of hyperemesis in current that she takes zofran prescription for. Patient states that upon arrival to OB unit she does not have nausea. Patient state she felt cramping following episodes of emesis. Patient states that she currently does not have cramping and denies any contractions/tightening/pain/pressure. Patient abdomen palpates soft. Patient reports active movement and denies any vaginal bleeding. Patient states that she has a white creamy discharge that is causing itching. Patient reports that she has now noticed bumps on her left labia. Patient reports she is currently taking antibiotics for an ear infection. VSS.
[2021-08-19 23:00] VITALS: BP 96/51; PULSE 84; TEMP 36.7
[2021-08-19 23:01] VITALS: BP 105/45; PULSE 190
[2021-08-19 23:02] VITALS: BP 105/45; PULSE 190
[2021-08-19 23:03] VITALS: BMI 46.2
--- NOTE | 2021-08-19 23:08 | PC.NURSE ---
Updated Dr. Paris of patient arrival to OB unit. Patient complaint of previous episode of nausea/emesis that has resolved, cramping that is resolved at present and vaginal discharge/itching and bumps on labia. No contractions noted. FHT WNL for gestational age. Discharge orders received.
--- NOTE | 2021-08-19 23:22 | PC.NURSE ---
Discharge instructions reviewed with patient. Patient instructed to continue home medications as prescribed. Patient instructed to take pepcid at home for indigestion and to use Tioconazole for yeast infection. Patient states she will pear picker Tioconazole at [facility] and does not require a prescription. Patient instructed to call Dr. Rogers office to schedule follow-up appointment on Sunday. labor precautions reviewed. Patient states understanding of discharge instructions and follow-up instructions. Patient agreeable to discharge.
--- NOTE | 2021-08-20 01:58 | PM.OBTRLD ---
OB - Triage/Final Diagnosis Visit Information Reason for evaluation: other (cramping; nausea and vomiting) Comments/Additional reasons for admission: I have assessed the risk for this patient, Zoila Gonzalez, and determined that she would benefit from observation care. Evaluation Vital signs: Vital Signs - 24 hr 08/19/21 23:00 08/19/21 23:01 08/19/21 23:02 Temperature 98.1 F Pulse Rate 84 190 H 190 H Blood Pressure 96/51 L 105/45 L 105/45 L
== END 2021-08-19 23:27 | disposition home or self-care (01) ==
PROVIDERS: Admitting Provider Obstetrics & Gynecology Gynecology; Visit Provider Obstetrics & Gynecology Gynecology
DX: O26.893 Other specified pregnancy related conditions, third trimester (principal); R10.9 Unspecified abdominal pain; O21.9 Vomiting of pregnancy, unspecified; Z3A.29 29 weeks gestation of pregnancy
CPT/HCPCS: G0378; G0379

== ENCOUNTER 2021-09-01 19:55 | Observation (INO) | payer OTHER, SELFPAY ==
[2021-09-01 20:08] VITALS: BP 121/64; PULSE 95; BMI 45.5
--- NOTE | 2021-09-01 20:09 | LDADM ---
This patient, Zoila Gonzalez, was admitted to OB Post 117 on 09/01/21 at 19:55. Plans for labor, pain management and were discussed with patient. Patient/family oriented to hospital policies and general routines including ID bracelet, bed and alarms, visiting hours, pain management, procedures, bathroom and other care routines, personal items, smoking policy, room service/diet and guest tray routines, infant security routines, and visiting hours. Patient/Family are encouraged to report perceived risks to care and to ask questions if they do not understand what they are told or what they should do. See OBIX for further documentation.
[2021-09-01 20:15] VITALS: BP 121/73; PULSE 91
[2021-09-01] MEDS: LACTATED RINGERS 1,000 ML 999 ML IV CONT (20:35)
[2021-09-01] MEDS: ONDANSETRON INJ 4 MG/2 ML VIAL IV PUSH (20:38)
[2021-09-01 20:43] VITALS: PULSE 65; RESP 17; O2SAT 100
[2021-09-01] MEDS: FAMOTIDINE 20 MG/2 ML VIAL IV PUSH (20:51)
--- NOTE | 2021-09-02 08:59 | PM.OBTRLD ---
OB - Triage/Final Diagnosis Visit Information Comments/Additional reasons for admission: I have assessed the risk for this patient, Zoila Gonzalez, and determined that she would benefit from observation care. Evaluation Vital signs: Vital Signs - 24 hr 09/01/21 20:08 09/01/21 20:15 09/01/21 20:43 Pulse Rate 95 91 65 Respiratory Rate 17 Blood Pressure 121/64 121/73 Pulse Oximetry 100 Oxygen Delivery 09/01/21 20:45 09/01/21 20:45 Pulse Rate Respiratory Rate Blood Pressure Pulse Oximetry Oxygen Delivery Room Air Room Air Final Diagnosis (1) Hyperemesis affecting , antepartum: Code(s): O21.0 - Mild hyperemesis gravidarum Status: Acute
== END 2021-09-01 21:40 | disposition home or self-care (01) ==
PROVIDERS: Admitting Provider Obstetrics & Gynecology; Visit Provider Obstetrics & Gynecology
DX: O21.0 Mild hyperemesis gravidarum (principal); Z3A.31 31 weeks gestation of pregnancy
CPT/HCPCS: 59025; 96374; 96375; G0378; G0379; J2405; J7120

== ENCOUNTER 2021-09-16 10:28 | Outpatient (CLI) | payer OTHER, SELFPAY ==
[2021-09-16 11:02] VITALS: BP 109/72; PULSE 86
[2021-09-16 11:16] VITALS: BP 111/55; PULSE 82
[2021-09-16 11:19] LABS: Basophils Percent Auto 0.3 % (0.2-1.2); Eosinophils Absolute Auto 0.1 K/mm3 (0-0.3); Eosinophils Percent Auto 0.9 % (0-4.4); Hematocrit 34.8 % (37.0-47.0); Hemoglobin 11.6 g/dL (12.0-15.0); Immature Granulocyte Absolute 0.08 K/mm3 (0.00-0.031); Immature Granulocyte Percent A 0.7 % (0-0.5); Lymphocytes Absolute Auto 2.88 K/mm3 (0.9-3.2); Lymphocytes Percent Auto 24.6 % (18.3-44.2); Mean Corpuscular HGB Conc 33.3 g/dl (32-36); Mean Corpuscular Hemoglobin 29.2 pg (26-34); Mean Corpuscular Volume 87.7 fl (80-100); Mean Platelet Volume 10.2 fl (7.4-10.4); Monocytes Absolute Auto 0.7 K/mm3 (0.1-0.6); Monocytes Percent Auto 5.6 % (2.6-8.5); Neutrophils Percent Auto 67.9 % (45.5-73.1); Platelet Count Result 207 k/mm3 (150-375); Red Blood Count 3.97 M/mm3 (4.2-5.4); Red Cell Distribution Width 15.1 % (11.5-14.5); White Blood Count 11.7 K/mm3 (4.5-10.0)
[2021-09-16 11:21] LABS: Appearance Urine Slightly Cloudy (Clear); Bilirubin Urine Negative (Negative); Blood Urine Negative (Negative); Color Urine Yellow (Yellow); Glucose Urine UA Negative (Negative); Ketones Urine Negative (Negative); Leukocyte Esterase Ur Negative LEU/UL (NEGATIVE); Nitrate Urine Negative (Negative); Protein Urine Negative (Negative); Specific Grav Ur 1.025 (1.001-1.035); Urobilinogen Urine 0.2 mg/dL (<2.0)
[2021-09-16 11:32] LABS: Creatinine Urine 134.8 mg/dL; Total Protein Urine Random 11 mg/dL; Ur Ttl Prot Creatinine Ratio 0.08 mg/mg (0-0.20)
[2021-09-16 11:35] LABS: Alanine Aminotransferase 13 U/L (6-35); Albumin Level 3.7 g/dL (3.5-5.1); Alkaline Phosphatase 84 U/L (38-126); Anion Gap 8 mmol/L (8-16); Aspartate Amino Transferase 19 U/L (14-36); Bilirubin,Total 0.4 mg/dL (0.2-1.3); Blood Urea Nitrogen 5 mg/dL (7-17); Calcium 8.9 mg/dL (8.4-10.2); Carbon Dioxide 22 mmol/L (22-30); Chloride 107 mmol/L (98-107); Estimated Glomerular Filt Rate > 60; Glucose 109 mg/dL (65-110); Potassium 3.3 mmol/L (3.4-5.0); Sodium 137 mmol/L (137-145); Uric Acid 3.6 mg/dL (2.5-7.5)
[2021-09-16 11:58] LABS: Bacteria Urine Trace /hpf; Mucus Urine Rare /lpf; RBC Urine 0-2 /hpf (0-2); Squamous Epithelial Cell Urine Few /hpf (Few)
[2021-09-16 12:29] LABS: Add Urine Microscopic? NO
[2021-09-16 12:49] VITALS: BP 109/72; PULSE 92
== END 2021-09-16 11:43 | disposition home or self-care (01) ==
LOC: ANHOBOP 10:34 → ANHOBPP 10:35
PROVIDERS: Visit Provider Obstetrics & Gynecology
DX: O13.3 Gestational [pregnancy-induced] hypertension without significant proteinuria, third trimester (principal); Z3A.33 33 weeks gestation of pregnancy
CPT/HCPCS: 36415; 59025; 80053; 81003; 82570; 84156; 84550; 85025; 87086; 99199

== ENCOUNTER 2021-09-19 06:16 | Outpatient (CLI) | payer OTHER, SELFPAY ==
[2021-09-19 06:46] VITALS: BP 96/56; PULSE 79
[2021-09-19 07:00] VITALS: BP 100/72; PULSE 78
[2021-09-19 07:16] LABS: Basophils Percent Auto 0.3 % (0.2-1.2); Eosinophils Absolute Auto 0.1 K/mm3 (0-0.3); Eosinophils Percent Auto 1.3 % (0-4.4); Hematocrit 32.9 % (37.0-47.0); Hemoglobin 10.5 g/dL (12.0-15.0); Immature Granulocyte Absolute 0.07 K/mm3 (0.00-0.031); Immature Granulocyte Percent A 0.7 % (0-0.5); Lymphocytes Percent Auto 25.6 % (18.3-44.2); Mean Corpuscular HGB Conc 31.9 g/dl (32-36); Mean Corpuscular Hemoglobin 28.5 pg (26-34); Mean Corpuscular Volume 89.2 fl (80-100); Monocytes Absolute Auto 0.6 K/mm3 (0.1-0.6); Monocytes Percent Auto 5.8 % (2.6-8.5); Neutrophils Absolute Auto 6.7 K/mm3 (1.3-6.7); Neutrophils Percent Auto 66.3 % (45.5-73.1); Platelet Count Result 189 k/mm3 (150-375); Red Blood Count 3.69 M/mm3 (4.2-5.4); Red Cell Distribution Width 15.3 % (11.5-14.5); White Blood Count 10.2 K/mm3 (4.5-10.0)
[2021-09-19 07:25] LABS: Creatinine Urine 207.8 mg/dL
[2021-09-19 07:27] LABS: Alanine Aminotransferase 15 U/L (6-35); Albumin Level 3.4 g/dL (3.5-5.1); Alkaline Phosphatase 76 U/L (38-126); Anion Gap 11 mmol/L (8-16); Aspartate Amino Transferase 18 U/L (14-36); Bilirubin,Total 0.3 mg/dL (0.2-1.3); Blood Urea Nitrogen 5 mg/dL (7-17); Calcium 8.4 mg/dL (8.4-10.2); Carbon Dioxide 21 mmol/L (22-30); Chloride 106 mmol/L (98-107); Estimated Glomerular Filt Rate > 60; Glucose 135 mg/dL (65-110); Potassium 3.5 mmol/L (3.4-5.0); Sodium 138 mmol/L (137-145); Uric Acid 3.3 mg/dL (2.5-7.5)
[2021-09-19 08:01] LABS: Add Urine Microscopic? YES; Appearance Urine Slightly Cloudy (Clear); Bilirubin Urine 1+ (Negative); Blood Urine Negative (Negative); Color Urine Yellow (Yellow); Glucose Urine UA Negative (Negative); Ketones Urine Trace mg/dL (Negative); Leukocyte Esterase Ur Negative LEU/UL (NEGATIVE); Nitrate Urine Negative (Negative); Protein Urine Negative (Negative); Specific Grav Ur >= 1.030 (1.001-1.035); Urobilinogen Urine 0.2 mg/dL (<2.0)
[2021-09-19 08:04] LABS: Bacteria Urine Trace /hpf; Mucus Urine Few /lpf; Squamous Epithelial Cell Urine Many /hpf (Few)
[2021-09-19 08:20] LABS: Total Protein Urine Random < 5 mg/dL; Ur Ttl Prot Creatinine Ratio < 0.02 mg/mg (0-0.20)
--- NOTE | 2021-09-19 08:52 | PC.NURSE ---
Dr Bernstein notified of adm c/o swelling. Informed of Reactive NST, slight swelling and normal lab values. OK to ia home.
[2021-09-19 09:02] VITALS: BP 96/56; PULSE 75
== END 2021-09-19 09:02 | disposition home or self-care (01) ==
LOC: ANHOBOP 06:21 → ANHOBPP 06:24
PROVIDERS: Visit Provider Obstetrics & Gynecology
DX: O13.9 Gestational [pregnancy-induced] hypertension without significant proteinuria, unspecified trimester (principal); Z3A.00 Weeks of gestation of pregnancy not specified
CPT/HCPCS: 36415; 59025; 80053; 81001; 82570; 84156; 84550; 85025; 87086; 87088; 99199

== ENCOUNTER 2021-09-25 15:40 | Outpatient (CLI) | payer OTHER, SELFPAY ==
[2021-09-25 16:02] VITALS: BP 97/69; PULSE 90
[2021-09-25 16:15] VITALS: BP 102/54; PULSE 90; RESP 20; TEMP 36.5
[2021-09-25 16:17] VITALS: BP 102/54; PULSE 87
[2021-09-25 16:24] LABS: Basophils Percent Auto 0.3 % (0.2-1.2); Eosinophils Absolute Auto 0.1 K/mm3 (0-0.3); Eosinophils Percent Auto 0.7 % (0-4.4); Hemoglobin 11.4 g/dL (12.0-15.0); Immature Granulocyte Absolute 0.05 K/mm3 (0.00-0.031); Immature Granulocyte Percent A 0.5 % (0-0.5); Lymphocytes Absolute Auto 1.77 K/mm3 (0.9-3.2); Lymphocytes Percent Auto 15.9 % (18.3-44.2); Mean Corpuscular HGB Conc 32.6 g/dl (32-36); Mean Corpuscular Hemoglobin 28.5 pg (26-34); Mean Corpuscular Volume 87.5 fl (80-100); Mean Platelet Volume 10.2 fl (7.4-10.4); Monocytes Absolute Auto 0.6 K/mm3 (0.1-0.6); Monocytes Percent Auto 5.2 % (2.6-8.5); Neutrophils Absolute Auto 8.6 K/mm3 (1.3-6.7); Neutrophils Percent Auto 77.4 % (45.5-73.1); Platelet Count Result 197 k/mm3 (150-375); Red Cell Distribution Width 14.8 % (11.5-14.5); White Blood Count 11.1 K/mm3 (4.5-10.0)
[2021-09-25 16:28] LABS: Appearance Urine Slightly Cloudy (Clear); Bilirubin Urine Negative (Negative); Blood Urine Negative (Negative); Color Urine Yellow (Yellow); Glucose Urine UA Negative (Negative); Ketones Urine Trace mg/dL (Negative); Leukocyte Esterase Ur Trace LEU/UL (NEGATIVE); Nitrate Urine Negative (Negative); Protein Urine Negative (Negative); Urobilinogen Urine 0.2 mg/dL (<2.0)
[2021-09-25 16:30] VITALS: BP 106/66; PULSE 89
[2021-09-25 16:35] LABS: Alanine Aminotransferase 16 U/L (6-35); Albumin Level 3.7 g/dL (3.5-5.1); Alkaline Phosphatase 94 U/L (38-126); Anion Gap 10 mmol/L (8-16); Aspartate Amino Transferase 23 U/L (14-36); Bilirubin,Total 0.4 mg/dL (0.2-1.3); Blood Urea Nitrogen 4 mg/dL (7-17); Calcium 9.1 mg/dL (8.4-10.2); Carbon Dioxide 21 mmol/L (22-30); Chloride 103 mmol/L (98-107); Estimated Glomerular Filt Rate > 60; Glucose 131 mg/dL (65-110); Potassium 3.4 mmol/L (3.4-5.0); Sodium 134 mmol/L (137-145); Uric Acid 3.4 mg/dL (2.5-7.5)
[2021-09-25 16:40] LABS: Bacteria Urine 1+ /hpf; Mucus Urine Rare /lpf; Squamous Epithelial Cell Urine Few /hpf (Few)
[2021-09-25 16:41] LABS: Add Urine Microscopic? YES
== END 2021-09-25 16:52 | disposition home or self-care (01) ==
LOC: ANHOBOP 15:44 → ANHOBPP 15:44
PROVIDERS: Visit Provider Obstetrics & Gynecology
DX: O13.9 Gestational [pregnancy-induced] hypertension without significant proteinuria, unspecified trimester (principal); Z3A.00 Weeks of gestation of pregnancy not specified
CPT/HCPCS: 36415; 59025; 80053; 81001; 84550; 85025; 87086; 99199

== ENCOUNTER 2021-10-26 19:45 | Inpatient (IN) | payer OTHER, SELFPAY ==
[2021-10-26] VITALS (8 sets, daily range): BP systolic 110–121; BP diastolic 76–85; PULSE 84–103; TEMP 36.2–36.4; BMI 46.4
[2021-10-26] MEDS: LACTATED RINGERS 1,000 ML 125 ML IV CONT (21:40)
[2021-10-26 21:49] LABS: Basophils Percent Auto 0.2 % (0.2-1.2); Eosinophils Absolute Auto 0.1 K/mm3 (0-0.3); Eosinophils Percent Auto 1.2 % (0-4.4); Hematocrit 36.1 % (37.0-47.0); Hemoglobin 11.8 g/dL (12.0-15.0); Immature Granulocyte Absolute 0.08 K/mm3 (0.00-0.031); Immature Granulocyte Percent A 0.7 % (0-0.5); Lymphocytes Absolute Auto 2.25 K/mm3 (0.9-3.2); Lymphocytes Percent Auto 19.9 % (18.3-44.2); Mean Corpuscular HGB Conc 32.7 g/dl (32-36); Mean Corpuscular Hemoglobin 28.5 pg (26-34); Mean Corpuscular Volume 87.2 fl (80-100); Mean Platelet Volume 10.4 fl (7.4-10.4); Monocytes Absolute Auto 0.6 K/mm3 (0.1-0.6); Monocytes Percent Auto 5.7 % (2.6-8.5); Neutrophils Absolute Auto 8.2 K/mm3 (1.3-6.7); Neutrophils Percent Auto 72.3 % (45.5-73.1); Platelet Count Result 219 k/mm3 (150-375); Red Blood Count 4.14 M/mm3 (4.2-5.4); Red Cell Distribution Width 14.6 % (11.5-14.5); White Blood Count 11.3 K/mm3 (4.5-10.0)
--- NOTE | 2021-10-26 21:50 | LDADM ---
This patient, Zoila Gonzalez, was admitted to Labor/Delivery/Recovery 103 on 10/26/21 at 19:45. Plans for labor, pain management and were discussed with patient. Patient/family oriented to hospital policies and general routines including ID bracelet, bed and alarms, visiting hours, pain management, procedures, bathroom and other care routines, personal items, smoking policy, room service/diet and guest tray routines, security routines, and visiting hours. Patient/Family are encouraged to report perceived risks to care and to ask questions if they do not understand what they are told or what they should do. See OBIX for further documentation.
[2021-10-26] MEDS: OXYTOCIN 30 UNITS/NS 500 ML 30 UNITS/500 ML BAG 6 UNITS IV CONT (22:37)
[2021-10-26 22:40] LABS: HIV 1/2 Ab P24 Ag Result Negative (Negative)
[2021-10-27] VITALS (198 sets, daily range): BP systolic 63–141; BP diastolic 33–108; PULSE 43–251; RESP 16–18; TEMP 36.1–37.1; O2SAT 75–100
--- NOTE | 2021-10-27 02:32 | WPDANESEPP ---
Anes - Eval Pre Procedure Procedure: labor epidural Date/Time: 10/27/21 02:32 Surgeon: svitlana Preop Diagnosis: pain during labor Pre Op Diagnosis: IOL Patient Data Age: 25 Gender: F Height: 1.68 m Weight: 130.5 kg Last Vital Signs Temp 36.6 C 10/27/21 01:03 Pulse 75 10/27/21 02:31 BP 113/68 10/27/21 02:31 O2 Del Method Room Air 10/26/21 21:46 Allergies Allergy/AdvReac Type Severity Reaction Status Date / Time buspirone [From BuSpar] Allergy Mild Dizziness Verified 10/26/21 09:20 amoxicillin Allergy Unknown Nausea and Verified 10/26/21 09:20 Vomiting duloxetine [From Cymbalta] Allergy Hallucinati Verified 10/26/21 09:20 ng Home Medications Medication Instructions Recorded Confirmed Type vitamins-iron fumarate 65 1 tablet PO DAILY 03/17/21 10/26/21 History mg iron-folic acid 1 mg tablet ferrous sulfate 325 mg (65 mg 325 mg PO DAILY #30 tabs 08/16/21 10/26/21 Rx iron) tablet (Feosol) ondansetron 4 mg disintegrating 4 mg PO Q8H PRN nausea and 10/06/21 10/26/21 Rx tablet vomiting #14 tabs magnesium 200 mg tablet 200 mg PO DAILY 10/10/21 10/26/21 History Laboratory Tests 10/26/21 10/26/21 10/26/21 21:41 21:41 21:42 WBC 11.3 K/mm3 H K/mm3 (4.5-10.0) RBC 4.14 M/mm3 L M/mm3 (4.2-5.4) Hgb 11.8 g/dL L g/dL (12.0-15.0) Hct 36.1 % L % (37.0-47.0) MCV 87.2 fl fl (80-100) MCH 28.5 pg pg (26-34) MCHC 32.7 g/dl g/dl (32-36) RDW 14.6 % H % (11.5-14.5) Plt Count 219 k/mm3 k/mm3 (150-375) MPV 10.4 fl fl (7.4-10.4) Immature Gran % (Auto) 0.7 % H % (0-0.5) Neut % (Auto) 72.3 % % (45.5-73.1) Lymph % (Auto) 19.9 % % (18.3-44.2) Miller % (Auto) 5.7 % % (2.6-8.5) Eos % (Auto) 1.2 % % (0-4.4) Baso % (Auto) 0.2 % % (0.2-1.2) Lymph # (Auto) 2.25 K/mm3 K/mm3 (0.9-3.2) Miller # (Auto) 0.6 K/mm3 K/mm3 (0.1-0.6) Eos # (Auto) 0.1 K/mm3 K/mm3 (0-0.3) Baso # (Auto) 0.0 K/mm3 K/mm3 (0.0-0.1) Abs Immat Gran (auto) 0.08 K/mm3 H K/mm3 (0.00-0.031) Absolute Neuts (auto) 8.2 K/mm3 H K/mm3 (1.3-6.7) Absolute Nucleated RBC 0.0 K/mm3 K/mm3 (0.0-0.012) Nucleated RBC % 0.0 % % (0.0-0.2) RPR Pending HIV 1&2 Ab/P24 Ag 4thGn Blood Type A Positive Antibody Screen Negative 10/26/21 21:42 WBC RBC Hgb Hct MCV MCH MCHC RDW Plt Count MPV Immature Gran % (Auto) Neut % (Auto) Lymph % (Auto) Miller % (Auto) Eos % (Auto) Baso % (Auto) Lymph # (Auto) Miller # (Auto) Eos # (Auto) Baso # (Auto) Abs Immat Gran (auto) Absolute Neuts (auto) Absolute Nucleated RBC Nucleated RBC % RPR HIV 1&2 Ab/P24 Ag 4thGn Negative (Negative) Blood Type Antibody Screen Patient hx anesthesia problems: none Family hx anesthesia problems: none Results Review: All pre-operative results and documents have been reviewed as part of the pre-operative evaluation. [facility] Past Medical History Medical History (Updated 10/27/21 @ 02:33 by Nicole Mock, ALONSO) Anxiety and depression Major depressive disorder Morbid obesity with BMI of 45.0-49.9, adult Suppression of menstruation Surgical History Surgical History History of endoscopy [place] teeth removed Family History Family History (Updated 10/10/21 @ 14:42 by Delaney Robles RN) Mother Heart disease Other Ovarian carcinoma maternal aunt Grandparent Acute myocardial infarction maternal grandmother Cerebrovascular accident maternal grandmother Heart disease History of open heart
[2021-10-27] MEDS: ONDANSETRON INJ 4 MG/2 ML VIAL IV PUSH ×2 (05:31→20:05)
[2021-10-27] MEDS: LACTATED RINGERS 1,000 ML 125 ML IV CONT ×3 (05:42→09:19)
[2021-10-27 07:56] LABS: Rapid Plasma Reagin Non-Reactive (NonReactive)
--- NOTE | 2021-10-27 14:26 | WPDHPUPDATE1 ---
History and Physical Update Update Date/Time: 10/27/21 14:26 History and Physical has been reviewed, including an updated exam of the patient. There are NO changes in the patient's condition. Risks, benefits, and alternatives have been discussed and questions answered. Patient agrees to proceed with procedure.
--- NOTE | 2021-10-27 14:26 | WPDOBADMIT ---
Obstetrics - Admit Note Admission Note: record reviewed. No pertinent additions to the history and/or any subsequent changes in the physical findings that are not consistent with the expected course of the were found. Additions to the history and/or subsequent changes in the physical findings follow. None.
--- NOTE | 2021-10-27 14:26 | PM.OBPRVD ---
OB - Delivery Note Procedure Induction method: Per Pitocin Protocol Delivery augmentation: Rupture of Membranes Delivery monitor: External FHT and Internal FHT Route of delivery: Episiotomy description: None Laceration Description: Perineal - 2nd Degree Delivery repair: chromic Specimen: No Quantitative Blood Loss (ml): 350 Anesthesia type: Epidural Disposition: Floor Complications: none Narrative: Patient prepped in usual manner for this procedure. Maternal expulsive efforts readily delivered vertex with nuchal cord noted. Rest of baby delivered cord clamped cut and placenta delivered spontaneously. Uterus was well contracted. Second-degree vaginal wall laceration was noted approximated using 2-0 chromic in a running interlocking manner with good approximation and hemostasis noted. At this point the procedure was considered terminated with immediate postoperative condition of mother and baby both excellent. Baby Weeks of gestation at delivery: 39 gender: Male Weight (pounds): 7 Weight (ounces): 1 presentation: vertex Placenta delivery description: Spontaneous Cord Vessel Description: 3 Vessels score one minute: 8 score five minutes: 9 AMG Delivery Billing Delivery Delivery: Delivery Charge
[2021-10-27] MEDS: OXYTOCIN 30 UNITS/NS 500 ML 30 UNITS/500 ML BAG 125 UNITS IV CONT (14:30)
--- NOTE | 2021-10-27 18:45 | PC.NURSE ---
Patient transferred to post room #286 via wheelchair. Support person, Uriel, present. Oriented to unit, room, information board, rooming in, admission packet and security measures. Patient verbalizes understanding.
[2021-10-27] MEDS: DOCUSATE SODIUM 100 MG CAPSULE PO (18:57)
[2021-10-27] MEDS: IBUPROFEN 600 MG TABLET PO (18:58)
[2021-10-27] MEDS: LANOLIN (LANSINOH) 7.5 GM CREAM 1 APPLIC TOPICAL (21:15)
--- NOTE | 2021-10-27 21:15 | PC.NURSE ---
Breast pump provided due to separation from infant in level II nursery. Instructions given on cleaning, care, usage, that there should be no pain, pumping schedule for milk production, collection, and storage of human milk. Patient was assessed for correct placement, 24mm flange size, to pump for comfort and nipple stretching/stimulation for adequate milk production every 3 hours (8 times in 24 hours) for 15-20 minutes. Mother voiced understanding of the education shared along with mom and baby guide for additional resource information. Pt requesting to use her own home Motif pump. Offered to initiate pumping upon arrival to division at 1845 and pt requested to wait until after she showered and was able to visit with her visitor and get settled into room.
[2021-10-28 04:00] VITALS: BP 100/58; PULSE 80; RESP 18; TEMP 36.4; O2SAT 98
[2021-10-28] MEDS: IBUPROFEN 600 MG TABLET PO (05:13)
[2021-10-28 05:30] LABS: Hemoglobin 10.7 g/dL (12.0-15.0)
--- NOTE | 2021-10-28 06:17 | PM.OBPNVD ---
OB - PN: Subj Subjective Date/time seen: 10/28/21 06:17 Narrative: PPD#1 Zoila reports doing well today. Her bleeding is light. Her pain is controlled. She is tolerating regular diet, voiding, passing gas, and ambulating without issues. She is pumping. Her son was transferred overnight for respiratory distress. OB - PN: Obj Data Labs CBC & Chem 7: 10/28/21 05:08 Labs: Laboratory Results - last 24 hr 10/26/21 10/28/21 21:42 05:08 Hgb 10.7 L Hct 32.0 L RPR Non-reactive OB - PN A/P Assessment and Plan (1) Normal vaginal delivery: Code(s): O80 - Encounter for full-term uncomplicated delivery Status: Acute Plan day: 1 Plan: routine care and discharge home Comments: - Pelvic rest; take meds as prescribed - ER return precautions: fever, n/v/abd pain, bleeding, HTN Time Spent With Patient Time: Total time spent is greater than 50% in coordination of care (as documented) at patient's floor/unit and/or counseling patient: Review of Systems Constitutional: Constitutional: Denies chills, Denies fever(s) and Denies headache(s) Eyes: Eyes: Denies change in vision ENT: Denies dizziness and Denies headache(s) Cardiovascular: Cardiovascular: Denies chest pain, Denies palpitations and Denies dyspnea Respiratory: Respiratory: Denies cough and Denies dyspnea Gastrointestinal: Gastrointestinal: Denies nausea and Denies vomiting Neurologic: Denies dizziness and Denies headache(s) Endocrine: Endocrine: Denies palpitations Exam Const: General: cooperative, comfortable and no acute distress Orientation/consciousness: patient oriented x3 Resp: Effort & Inspection: normal respiratory effort Auscultation: clear to auscultation bilaterally Cardio: Rate: regular rate GI: Inspection: non-distended GI Palp: No abdominal tenderness and Yes Soft to palpation Auscultation: normal bowel sounds : Other: fundus firm Skin: General skin exam: normal color Neuro: General: patient oriented x3 Extrem: General: normal to inspection Psych: Appearance: grossly normal Affect: normal affect Attitude: cooperative
[2021-10-28 08:10] VITALS: BP 120/71; PULSE 74; RESP 16; TEMP 36.2; O2SAT 100
[2021-10-28] MEDS: DOCUSATE SODIUM 100 MG CAPSULE PO (09:36)
[2021-10-28] MEDS: BENZOCAINE 20% AER SPR (*SP) 56 GM CAN 1 SPRAY TOPICAL (09:36)
[2021-10-28] MEDS: WITCH HAZEL 40 PADS 1 PAD TOPICAL (09:36)
[2021-10-28] MEDS: MEASLES,MUMPS,RUBELLA VACCINE 0.5 ML VIAL SUB-Q (09:38)
--- NOTE | 2021-10-28 10:16 | PC.NURSE ---
Report received from primary RN that patient has initiated pumping for her that had been transferred to [facility], other pumped 4-6 mls of breast milk and flange fitting is appropriate per Debo WOODWARD.
--- NOTE | 2021-10-28 11:05 | PC.NURSE ---
0990 Patient was given the opportunity to view the discharge video Mother & Baby Care, The First Two Weeks and to ask questions. Patient declined viewing the video and has been given the mother/baby guide for home reference. Will watch it at home.
--- NOTE | 2021-10-31 10:03 | PM.OBDSVD ---
DS: Admitting Diagnosis Discharge Date 10/28/21 Admitting Diagnosis induction of labor DS: Discharge Diagnosis Discharge Diagnosis (1) Normal vaginal delivery: Code(s): O80 - Encounter for full-term uncomplicated delivery Status: Acute OB - DS: Summary OB Procedures : Ultrasound OB Procedures Intrapartum: Spontaneous Vag Delivery OB Procedures: : None Peripartum Data Infant Delivery Method: Natural Vaginal Laceration Description: Perineal - 2nd Degree complications: none [place] 1: Gender: Male Disposition of : NICU Status at Discharge Functional status at discharge: independent ambulation Overall status at discharge: patient is back to baseline Time Spent with Patient Time attestation: Total time spent providing and/or coordinating discharge services: Time spent: Less than 30 minutes Exam Const: General: cooperative, comfortable and no acute distress Orientation/consciousness: patient oriented x3 Resp: Effort & Inspection: normal respiratory effort Auscultation: clear to auscultation bilaterally Cardio: Rate: regular rate GI: Inspection: non-distended GI Palp: No abdominal tenderness and Yes Soft to palpation Auscultation: normal bowel sounds : Other: fundus firm Skin: General skin exam: normal color Neuro: General: patient oriented x3 Extrem: General: normal to inspection Psych: Appearance: grossly normal Affect: normal affect Attitude: cooperative Discharge Plan Discharge Attending physician on discharge: Haylie Santos Discharging Clinician: Haylie Santos Anticipated Discharge Date/Time: 10/28/21 09:00 Patient Disposition: Home, Self-Care Activity: may shower and pelvic rest Diet: regular Discharge Instructions: Education: Mom and Baby Guide Given to: Mother Follow-Up: Call your delivering provider's office for an appointment to be seen in: 4 Weeks Mom and baby should come to the [facility] for the follow-up appointment. Appointment Date/Time: Sunday, October 31, 2021 at 11:00 am What to expect at your follow-up visit: Physical Assessment Call [phone] if you are unable to keep your appointment time. BREAST CARE: * Wear a snug supportive bra. * For engorgement discomfort: Breast Feeding: * Apply warm moist washcloths * Express milk as needed to relieve engorgement * Wear loose clothing * For sore nipples: * Identify correct latch-on * Apply warm moist washcloths before and after nursing * Air dry nipples after nursing * May apply Lansinoh cream to nipples EPISIOTOMY/PERINEAL CARE: * Until bleeding stops, use your paty bottle after urinating * Change your pad frequently throughout the day * You may take sitz baths several times a day (fill your bathtub with warm water and soak for 20 minutes.) Do NOT bathe in the water * No tub baths until seen by your physician - You may shower ACTIVITY: * Rest as much as possible. * Do not exercise or lift anything heavier than your baby (such as laundry or other children.) * Avoid stairs or driving as much as possible. * Do not put anything into the vagina. No douching, tampons, or sexual activity until seen by physician. NOTIFY PHYSICIAN IF YOU HAVE ANY QUESTIONS OR IF ANY OF THE FOLLOWING SYMPTOMS OCCUR: * If your episiotomy or incision becomes red, swollen, or more painful than what you have experienced in the hospital. * If your vaginal bleeding becomes foul smelling. * If your vaginal bleeding becomes more heavy than a period or if your bleeding changes from pink to bright red. However, you may pass an occasional walnut-sized clot once or twice for the first week . * If you experience a sharp, shooting pain in you calves. * If you discover a hard, reddened area on your breast or if you experience flu-like symptoms.
[2021-10-31 11:14] VITALS: BP 116/82; PULSE 117; RESP 20; TEMP 36.8; O2SAT 99
== END 2021-10-28 10:35 | disposition home or self-care (01) | DRG 560 ==
LOC: ANHLDR 10-27 09:50 → ANHOB2 10-28 06:19 → ANHLDR 10-31 12:48 → ANHOB2 10-31 12:48
PROVIDERS: Admitting Provider Obstetrics & Gynecology; Visit Provider Obstetrics & Gynecology
DX: O76 Abnormality in fetal heart rate and rhythm complicating labor and delivery (principal); O69.81X0 Labor and delivery complicated by cord around neck, without compression, not applicable or unspecified; O70.1 Second degree perineal laceration during delivery; Z3A.39 39 weeks gestation of pregnancy; Z37.0 Single live birth
CPT/HCPCS: 36415; 85014; 85018; 85025; 86592; 86703; 86850; 86900; 86901; 90710; A9270; G0432; J2405; J2590; J2795; J7120

== ENCOUNTER 2022-01-25 11:02 | Emergency (ER) | payer OTHER, SELFPAY ==
--- NOTE | ~2022-01-25 | CT_ITS ---
EXAMINATION: CT abdomen pelvis w con DATE: 01/25/2022 13:56 INDICATION: Abdominal pain, vomiting TECHNIQUE: Computed tomography (CT) of the abdomen and pelvis was performed with 100 CC Omnipaque 350 intravenous contrast. Automated exposure control and iterative reconstruction technique were employe d. Exam dose: 1686.89 mGy-cm total exam DLP. COMPARISON: 08/04/2019 CT abdomen pelvis FINDINGS: Occasional pleural-based nodular densities measuring up to 5 mm, likely benign. No infiltra te or consolidation at the lung bases. Normal heart size. No pericardial or pleural effusion. The liver, gallbladder, bile ducts, spleen, pancreas, pancreatic duct, and adrenal glands and kidneys are unremarkable. No renal mass lesion or urinary tract calculus or hydroureteronephrosis is detecte d. The urinary bladder, uterus and adnexal areas are unremarkable. Normal caliber of the abdominal aorta. No intraperitoneal or retroperitoneal or pelvic mass lesion or adenopathy or ascites. No bowel obstruction, bowel wall thickening, pneumatosis or intraperitoneal free air. Normal appendix . Small fat-containing umbilical hernia. Included skeletal structures are unremarkable. IMPRESSION: Normal appendix; no significant abnormality of the abdomen or pelvis Reviewed, dictated and finalized at [facility]. Reviewed, dictated and finalized at location B. PHONE MAINTAINER IMPRESSION: Normal appendix; no significant abnormality of the abdomen or pelv is
[2022-01-25 11:24] VITALS: BP 103/89; PULSE 82; RESP 14; O2SAT 98
[2022-01-25 11:45] LABS: Basophils Absolute Auto 0.1 K/mm3 (0.0-0.1); Basophils Percent Auto 0.7 % (0.2-1.2); Eosinophils Absolute Auto 0.3 K/mm3 (0-0.3); Hematocrit 41.4 % (37.0-47.0); Hemoglobin 13.8 g/dL (12.0-15.0); Immature Granulocyte Absolute 0.02 K/mm3 (0.00-0.031); Immature Granulocyte Percent A 0.2 % (0-0.5); Lymphocytes Absolute Auto 2.77 K/mm3 (0.9-3.2); Lymphocytes Percent Auto 31.4 % (18.3-44.2); Mean Corpuscular HGB Conc 33.3 g/dl (32-36); Mean Corpuscular Hemoglobin 29.3 pg (26-34); Mean Corpuscular Volume 87.9 fl (80-100); Mean Platelet Volume 9.5 fl (7.4-10.4); Monocytes Absolute Auto 0.6 K/mm3 (0.1-0.6); Monocytes Percent Auto 7.2 % (2.6-8.5); Neutrophils Absolute Auto 5.1 K/mm3 (1.3-6.7); Neutrophils Percent Auto 57.5 % (45.5-73.1); Platelet Count Result 296 k/mm3 (150-375); Red Blood Count 4.71 M/mm3 (4.2-5.4); Red Cell Distribution Width 13.2 % (11.5-14.5); White Blood Count 8.8 K/mm3 (4.5-10.0)
[2022-01-25 11:58] LABS: Alanine Aminotransferase 24 U/L (6-35); Albumin Level 4.5 g/dL (3.5-5.1); Alkaline Phosphatase 85 U/L (38-126); Anion Gap 7 mmol/L (8-16); Aspartate Amino Transferase 26 U/L (14-36); Bilirubin,Total 0.4 mg/dL (0.2-1.3); Blood Urea Nitrogen 8 mg/dL (7-17); Calcium 9.2 mg/dL (8.4-10.2); Carbon Dioxide 27 mmol/L (22-30); Chloride 103 mmol/L (98-107); Estimated CRCL calculation 144 ml/min; Estimated Glomerular Filt Rate > 60; Glucose 85 mg/dL (65-110); Lipase 112 U/L (23-300); Potassium 3.5 mmol/L (3.4-5.0); Sodium 137 mmol/L (137-145)
[2022-01-25 12:42] LABS: Appearance Urine Slightly Cloudy (Clear); Bilirubin Urine Negative (Negative); Blood Urine Trace-intact (Negative); Color Urine Yellow (Yellow); Glucose Urine UA Negative (Negative); Ketones Urine Negative (Negative); Leukocyte Esterase Ur 2+ LEU/UL (Negative); Nitrate Urine Negative (Negative); Protein Urine Negative (Negative); Urobilinogen Urine 0.2 mg/dL (<2.0)
[2022-01-25 12:48] LABS: Bacteria Urine Trace /hpf; Squamous Epithelial Cell Urine Many /hpf (Few); WBC Urine 51-75 /hpf
--- NOTE | 2022-01-25 13:07 | ED.NAVMDI ---
HPI - Nausea/Vomiting/Diarrhea General Chief complaint: Nausea/Vomiting/Diarrhea Stated complaint: nausea and vomiting, sore throat and ear pressure Time Seen by Provider: 01/25/22 13:06 Source: patient Mode of arrival: ambulatory Limitations: no limitations History of Present Illness HPI Narrative: Patient is 26 years old white female presented to the ED with nausea for the last 3 months. Patient is telling me that she had hyperemesis gravidarum for 9 months and used to be on IV fluid all the time. Patient believes that she is dehydrated, she denies any fever or chills or vomiting or abdominal pain. She would like to get some IV fluid. Currently on Zofran. Related Data Home Medications Medication Instructions Recorded Confirmed vitamins-iron fumarate 65 1 tablet PO DAILY 03/17/21 10/27/21 mg iron-folic acid 1 mg tablet magnesium 200 mg tablet 200 mg PO DAILY 10/10/21 10/27/21 Allergies Allergy/AdvReac Type Severity Reaction Status Date / Time buspirone [From BuSpar] AdvReac Mild Dizziness Verified 01/25/22 14:29 amoxicillin AdvReac Unknown Nausea and Verified 01/25/22 14:29 Vomiting duloxetine [From Cymbalta] AdvReac Hallucinati Verified 01/25/22 14:29 ng Review of Systems Review of Systems: All systems reviewed & are unremarkable except as noted in HPI and below PMFSH Past Medical History Medical History Anxiety and depression Major depressive disorder Morbid obesity with BMI of 45.0-49.9, adult Suppression of menstruation Surgical History Surgical History History of endoscopy [place] teeth removed Family History Family History Mother Heart disease Other Ovarian carcinoma maternal aunt Grandparent Acute myocardial infarction maternal grandmother Cerebrovascular accident maternal grandmother Heart disease History of open heart surgery Father Seizures Social History Social History Smoking status: Never smoker Alcohol intake: never Substance use: former Substance use type: marijuana Last use: 07/2020 Additional living arrangements comments: grandfather Gender identity (if verbalized by the patient): Female Sexual Orientation (if Verbalized by the Patient): Straight or Heterosexual Spiritual care concerns: No Exam Narrative: General appearance: Well-developed, well-nourished Skin: Normal color Head: Normocephalic, nontraumatic Eyes: Clear conjunctiva ENT: Oropharynx normal, ears normal, nose normal Neck: Supple, nontender Chest and respiratory: Airway patent, no respiratory distress, no accessory muscle use Heart: Regular rate/rhythm Abdomen: Soft, nontender, no organomegaly, quiet bowel sounds Vascular: Normal peripheral pulses, normal capillary refill. Musculoskeletal: Normal range of motion, nontender back Neurologic: Alert and oriented ?3, SILK SPOTTER is normal as tested, no gross motor deficit Course Course Emergency Course: Patient presents with nausea for the last 3 months since she had her baby also believe that she is dehydrated. Work-up today showed no dehydration, normal electrolytes, CT scan of the abdomen showed no significant abnormalities. Urine analysis showed urinary tract infection which could be asymptomatic or could be making her nausea more prominent than before. Patient reports that her nausea today is not different than 1 week ago. She denies any fever or chills. Rocephin 1 g IV given prior to discharge. Patient currently on
[2022-01-25 13:11] LABS: Add Urine Microscopic? YES
[2022-01-25] MEDS: SODIUM CHLORIDE 0.9% IV 1,000 ML 999 ML IV CONT ×2 (13:23)
[2022-01-25] MEDS: ONDANSETRON INJ 4 MG/2 ML VIAL IV PUSH (13:23)
== END 2022-01-25 15:41 | disposition home or self-care (01) ==
PROVIDERS: Emergency Provider Emergency Medicine; PCP Physician Assistant
DX: N39.0 Urinary tract infection, site not specified (principal); R11.0 Nausea; E66.01 Morbid (severe) obesity due to excess calories; Z68.42 Body mass index [BMI] 45.0-49.9, adult
CPT/HCPCS: 36415; 74177; 80053; 81025; 83690; 85025; 87086; 87088; 96361; 96365; 96375; 99284; J0696; J2405; J7030; Q9967

== ENCOUNTER 2022-08-08 15:37 | Emergency (ER) | payer OTHER, SELFPAY ==
[2022-08-08 15:49] VITALS: BP 110/68; PULSE 93; RESP 18; TEMP 35.9; O2SAT 98
--- NOTE | 2022-08-08 15:54 | ECG_ITS ---
Measurements Intervals [place] Rate: 78 P: 0 NE: 135 QRS: 11 QRSD: 104 T: 5 QT: 373 QTc: 426 Interpretive Statements SINUS RHYTHM NO PREVIOUS ECG AVAILABLE FOR COMPARISON Electronically Signed On 08-08-2022 16:26:34 CDT by Lily Fernandez M.D.
[2022-08-08 17:34] LABS: Appearance Urine Cloudy (Clear); Bacteria Urine 1+ /hpf; Bilirubin Urine Negative (Negative); Blood Urine Negative (Negative); Color Urine Yellow (Yellow); Glucose Urine UA Negative (Negative); Ketones Urine Negative (Negative); Leukocyte Esterase Ur 2+ LEU/UL (Negative); Nitrate Urine Negative (Negative); Non Pathogenic Casts 0-2; Protein Urine Negative (Negative); RBC Urine 0-2 /hpf (0-2); Specific Grav Ur 1.021 (1.001-1.035); Squamous Epithelial Cell Urine Few /hpf (Few); WBC Urine 21-50 /hpf; pH Urine 5.5 (5.0-9.0)
[2022-08-08 17:45] LABS: Basophils Absolute Auto 0.1 K/mm3 (0.0-0.1); Basophils Percent Auto 0.5 % (0.2-1.2); Eosinophils Absolute Auto 0.4 K/mm3 (0-0.3); Eosinophils Percent Auto 3.6 % (0-4.4); Hematocrit 40.7 % (37.0-47.0); Hemoglobin 13.4 g/dL (12.0-15.0); Immature Granulocyte Absolute 0.02 K/mm3 (0.00-0.031); Immature Granulocyte Percent A 0.2 % (0-0.5); Lymphocytes Absolute Auto 2.82 K/mm3 (0.9-3.2); Lymphocytes Percent Auto 29.3 % (18.3-44.2); Mean Corpuscular HGB Conc 32.9 g/dl (32-36); Mean Corpuscular Hemoglobin 28.9 pg (26-34); Mean Corpuscular Volume 87.9 fl (80-100); Mean Platelet Volume 9.2 fl (7.4-10.4); Monocytes Absolute Auto 0.6 K/mm3 (0.1-0.6); Monocytes Percent Auto 5.8 % (2.6-8.5); Neutrophils Absolute Auto 5.8 K/mm3 (1.3-6.7); Neutrophils Percent Auto 60.6 % (45.5-73.1); Platelet Count Result 276 k/mm3 (150-375); Red Blood Count 4.63 M/mm3 (4.2-5.4); Red Cell Distribution Width 13.1 % (11.5-14.5); White Blood Count 9.6 K/mm3 (4.5-10.0)
[2022-08-08 17:45] LABS: Add Urine Microscopic? YES
[2022-08-08] MEDS: SODIUM CHLORIDE 0.9% IV 1,000 ML 999 ML IV CONT (17:47)
--- NOTE | 2022-08-08 18:12 | ED.DIZZY ---
HPI - Dizziness General Chief Complaint: Dizziness Stated Complaint: ear pain, n/v Time Seen by Provider: 08/08/22 17:35 History of Present Illness HPI Narrative: Patient is a 26-year-old female presenting with ear problems and concerns for dehydration. Patient states that she has been having on and off ear infections for the last 6 weeks. States that she has been treated with antibiotics twice. States that she has followed up with her primary may have started allergy medicines. States that she stopped taking the Zyrtec for a while but she was advised to restart it sometime last week. States that she continues to have fullness in both of her ears and states that today they have been aching. States that she sometimes has episodes of vertigo that are worse in the morning. States that it will happen randomly. States that she was on meclizine but it did not seem to help much so she stopped. States that she is also concerned that she is dehydrated because she is only able to drink 2 bottles of water per day. She reports intermittent nausea but no vomiting. No numbness or weakness, speech changes, vision changes, headaches. No chest pain, shortness of breath, abdominal pain, diarrhea, dysuria, leg swelling. Related Data Home Medications Medication Instructions Recorded Confirmed vitamins-iron fumarate 65 1 tablet PO DAILY 03/17/21 10/27/21 mg iron-folic acid 1 mg tablet magnesium 200 mg tablet 200 mg PO DAILY 10/10/21 10/27/21 Allergies Allergy/AdvReac Type Severity Reaction Status Date / Time buspirone [From BuSpar] AdvReac Mild Dizziness Verified 01/25/22 14:29 amoxicillin AdvReac Unknown Nausea and Verified 01/25/22 14:29 Vomiting duloxetine [From Cymbalta] AdvReac Hallucinati Verified 01/25/22 14:29 ng Review of Systems Review of Systems: All systems reviewed & are unremarkable except as noted in HPI and below PMFSH Past Medical History Medical History Anxiety and depression Major depressive disorder Morbid obesity with BMI of 45.0-49.9, adult Suppression of menstruation Surgical History Surgical History History of endoscopy [place] teeth removed Family History Family History Mother Heart disease Other Ovarian carcinoma maternal aunt Grandparent Acute myocardial infarction maternal grandmother Cerebrovascular accident maternal grandmother Heart disease History of open heart surgery Father Seizures Social History Social History Smoking status: Never smoker Alcohol intake: never Substance use: never Substance use type: marijuana Last use: 07/2020 Living arrangements: with family Additional living arrangements comments: grandfather Occupation/Education: unemployed Gender identity (if verbalized by the patient): Female Sexual Orientation (if Verbalized by the Patient): Straight or Heterosexual Spiritual care concerns: No Exam Narrative: GENERAL: Well-appearing, well-nourished, and in no acute distress. HEAD: Normocephalic, atraumatic. EYES: PERRLA and EOMI. ENT: Nares clear, no rhinorrhea or epistaxis. Mucous membranes moist. +middle ear effusions bilaterally without erythema or purulence NECK: Supple. CHEST: Clear to auscultation. No respiratory distress. HEART: Regular rate and rhythm. ABDOMEN: Soft, nontender, nondistended EXTREMITIES: Normal range of motion. No edema. SKIN: Warm, dry, no rash. NEURO: No focal deficits. Alert and oriented x3. PSYCH: Normal mood and affect. Course Vital Signs Vital signs: Vital Signs Temperature 96.7 F L 08/08/22 15:49 Pulse Rate 93 08/08/22 15:49 Respiratory Rate 18 08/08/22 15:49 Blood Pressure 110/68 08/08/22 15:49 Pulse Oximetry 98
[2022-08-08 18:59] LABS: Alanine Aminotransferase 21 U/L (6-35); Albumin Level 4.2 g/dL (3.5-5.1); Alkaline Phosphatase 75 U/L (38-126); Anion Gap 6 mmol/L (8-16); Aspartate Amino Transferase 27 U/L (14-36); Bilirubin,Total 0.5 mg/dL (0.2-1.3); Blood Urea Nitrogen 12 mg/dL (7-17); Calcium 8.8 mg/dL (8.4-10.2); Carbon Dioxide 25 mmol/L (22-30); Chloride 108 mmol/L (98-107); Estimated CRCL calculation 201 ml/min; Estimated Glomerular Filt Rate > 60; Glucose 79 mg/dL (65-110); Potassium 3.9 mmol/L (3.4-5.0); Sodium 139 mmol/L (137-145)
[2022-08-08 19:31] LABS: Lipase 123 U/L (23-300)
[2022-08-08 19:54] VITALS: BP 128/64; PULSE 88; RESP 15; O2SAT 99
== END 2022-08-08 20:02 | disposition home or self-care (01) ==
PROVIDERS: Emergency Provider Emergency Medicine; PCP Physician Assistant
DX: H93.8X3 Other specified disorders of ear, bilateral (principal); R42 Dizziness and giddiness; N39.0 Urinary tract infection, site not specified; E66.01 Morbid (severe) obesity due to excess calories; Z68.42 Body mass index [BMI] 45.0-49.9, adult
CPT/HCPCS: 36415; 80053; 81001; 81025; 83690; 85025; 87086; 87088; 87491; 87591; 93005; 96360; 99284; J7030

== ENCOUNTER 2022-11-17 13:01 | Emergency (ER) | payer OTHER, SELFPAY ==
[2022-11-17 13:11] VITALS: BP 145/79; PULSE 92; RESP 18; TEMP 36.6; O2SAT 99
--- NOTE | 2022-11-17 14:12 | ED.EAR ---
HPI - Ear Problem General Chief complaint: Ear Stated complaint: both ears painful Time Seen by Provider: 11/17/22 14:03 Source: patient and RN notes reviewed Mode of arrival: ambulatory Limitations: no limitations History of Present Illness HPI Narrative: Patient presents today complaining of a 2 week history of bilateral ear pain. States she has some yellow drainage on her Q-tip when she cleans her ears out. Denies difficulty hearing. She has been taking some Tylenol without relief. She also reports a 1.5 week history of genital itching and mild genital burning with urination. Related Data Allergies Allergy/AdvReac Type Severity Reaction Status Date / Time buspirone [From BuSpar] AdvReac Mild Dizziness Verified 11/17/22 13:08 amoxicillin AdvReac Unknown Nausea and Verified 11/17/22 13:08 Vomiting duloxetine [From Cymbalta] AdvReac Hallucinati Verified 11/17/22 13:08 ng Review of Systems Review of Systems: CONSTITUTIONAL: Denies body aches, fever, chills, or sweats. EYES: Denies visual changes, redness, or discharge. ENT: Denies rhinorrhea, congestion, sore throat. + bilateral ear pain CARDIOVASCULAR: Denies chest pain, palpitations, or edema. RESPIRATORY: Denies cough or dyspnea. GASTROINTESTINAL: Denies abdominal pain, nausea, vomiting, or diarrhea. GENITOURINARY: + dysuria, itching SKIN: Denies rash, itching, or wounds. MUSCULOSKELETAL: Denies back pain, joint pain, or myalgia. NEUROLOGIC: Denies headache, numbness, tingling, or weakness. PSYCH: Denies depression or anxiety. [facility] Past Medical History Medical History Anxiety and depression Major depressive disorder Morbid obesity with BMI of 45.0-49.9, adult Suppression of menstruation Surgical History Surgical History History of endoscopy [place] teeth removed Family History Family History Mother Heart disease Other Ovarian carcinoma maternal aunt Grandparent Acute myocardial infarction maternal grandmother Cerebrovascular accident maternal grandmother Heart disease History of open heart surgery Father Seizures Social History Social History Smoking status: Never smoker Alcohol intake: never Substance use: never Substance use type: marijuana Last use: 07/2020 Living arrangements: with family Additional living arrangements comments: grandfather Occupation/Education: unemployed Gender identity (if verbalized by the patient): Female Sexual Orientation (if Verbalized by the Patient): Straight or Heterosexual Spiritual care concerns: No Comments At time of signature, I have reviewed and agree with nursing past medical, surgical, social and family history unless otherwise noted. Please see nursing chart for further information. There is no relevant family history pertinent to the presenting complaint Exam Narrative: GENERAL: Well-appearing, well-nourished, and in no acute distress. HEAD: Normocephalic, atraumatic. EYES: EOMI. No redness or drainage. Conjunctivae normal. ENT: Mucous membranes pink and moist. Nares clear. No rhinorrhea. TMs normal bilaterally with mild middle ear effusions without evidence of bacterial infection. NECK: Normal AROM. CHEST: No respiratory distress. EXTREMITIES: Normal range of motion. No edema. SKIN: Warm, dry, no rash. Capillary refill normal. Normal skin turgor. NEURO: No focal deficits. Alert and oriented x3. Gait steady. PSYCH: Normal affect. No signs of depression or anxiety. Course Course Level of Care: Express Care Visit Vital Signs Vital signs: Vital Signs Temperature 97.9 F 11/17/22 13:11 Pulse Rate 92 11/17/22 13:11 Respiratory Rate 18 11/17/22 13:11 Blood Pressure 145/79
== END 2022-11-17 14:18 | disposition home or self-care (01) ==
PROVIDERS: Emergency Provider Nurse Practitioner; PCP Physician Assistant
DX: H65.03 Acute serous otitis media, bilateral (principal); F41.9 Anxiety disorder, unspecified; F32.A Depression, unspecified
CPT/HCPCS: 81003; 81025; 87086; 87088; 99213; G0463

== ENCOUNTER 2022-12-02 11:39 | Emergency (ER) | payer OTHER, SELFPAY ==
[2022-12-02 11:49] VITALS: BP 138/91; PULSE 95; RESP 16; TEMP 36.7; O2SAT 96
--- NOTE | 2022-12-02 12:17 | ED.EXTPRO ---
HPI - Extremity Problem General Chief complaint: Extremity Problem,Nontraumatic Stated complaint: thigh pain Time Seen by Provider: 12/02/22 12:10 Source: patient Related Data Allergies Allergy/AdvReac Type Severity Reaction Status Date / Time buspirone [From BuSpar] AdvReac Mild Dizziness Verified 11/17/22 13:08 amoxicillin AdvReac Unknown Nausea and Verified 11/17/22 13:08 Vomiting duloxetine [From Cymbalta] AdvReac Hallucinati Verified 11/17/22 13:08 ng [facility] Past Medical History Medical History Anxiety and depression Major depressive disorder Morbid obesity with BMI of 45.0-49.9, adult Suppression of menstruation Surgical History Surgical History History of endoscopy [place] teeth removed Family History Family History Mother Heart disease Other Ovarian carcinoma maternal aunt Grandparent Acute myocardial infarction maternal grandmother Cerebrovascular accident maternal grandmother Heart disease History of open heart surgery Father Seizures Social History Social History Smoking status: Never smoker Alcohol intake: never Substance use: never Substance use type: marijuana Last use: 07/2020 Living arrangements: with family Additional living arrangements comments: grandfather Occupation/Education: unemployed Gender identity (if verbalized by the patient): Female Sexual Orientation (if Verbalized by the Patient): Straight or Heterosexual Spiritual care concerns: No Course Vital Signs Vital signs: Vital Signs Temperature 36.7 C 12/02/22 11:49 Pulse Rate 95 12/02/22 11:49 Respiratory Rate 16 12/02/22 11:49 Blood Pressure 138/91 H 12/02/22 11:49 Pulse Oximetry 96 12/02/22 11:49 Oxygen Delivery Room Air 12/02/22 11:49 Temperature 36.7 C 12/02/22 11:49 Pulse Rate 95 12/02/22 11:49 Respiratory Rate 16 12/02/22 11:49 Blood Pressure 138/91 H 12/02/22 11:49 Pulse Oximetry 96 12/02/22 11:49 Oxygen Delivery Room Air 12/02/22 11:49 Discharge Plan Discharge Prescriptions: No Action fluticasone propionate [Flonase Allergy Relief] 50 mcg/actuation spray,suspension 2 spray intranasal DAILY PRN (Reason: nasal congestion) Qty: 15.8 0RF Rx Instructions: administer into each nostril ferrous sulfate [Feosol] 325 mg (65 mg iron) tablet 325 mg PO DAILY Qty: 90 3RF ibuprofen 600 mg tablet 600 mg PO TID PRN (Reason: Cramping) Qty: 30 0RF Follow-up/Referrals: Farooq,SUKI Ellington [Primary Care Provider] -
--- NOTE | 2022-12-02 13:00 | PC.NURSE ---
went to update POC with the pt. pt not in room. provider made aware. US updated
== END 2022-12-02 13:20 | disposition left against medical advice (07) ==
PROVIDERS: Emergency Provider Emergency Medicine; PCP Physician Assistant
DX: M79.652 Pain in left thigh (principal)
CPT/HCPCS: 99199

== ENCOUNTER 2023-05-30 12:49 | Emergency (ER) | payer OTHER, SELFPAY ==
[2023-05-30] VITALS (7 sets, daily range): BP systolic 123–150; BP diastolic 71–96; PULSE 65–103; RESP 18–23; TEMP 36.8–36.9; O2SAT 94–100
--- NOTE | 2023-05-30 13:06 | ED.DIZZY ---
HPI - Dizziness General Chief Complaint: Dizziness <Cecil Vazquez APRN - Last Filed: 05/30/23 13:10> Stated Complaint: BLE swelling/dehydrated/dizzy <Cecil Vazquez APRN - Last Filed: 05/30/23 13:10> Time Seen by Provider: 05/30/23 13:07 <Cecil Vazquez APRN - Last Filed: 05/30/23 13:10> Focused HPI: Zoial is a 27-year-old female patient presenting to the ER today with complaints of bilateral lower extremity swelling, possible dehydration, and dizziness for the past 1.5 weeks. She reports she felt dizzy last night when she was giving her son a bath when she was bending forward. Denies any associated chest pain or shortness of breath at this time. Denies any history of autoimmune disorder. States she would just wants to come in and make sure that her heart is okay. General: Well-developed, morbidly obese, in no apparent distress Head: Normocephalic, atraumatic. Cardio: Regular rate and rhythm, s1 and s2 normal, no murmur appreciated. Resp: Clear to auscultation bilaterally, no rhonchi, rales, wheezing or rubs. Musculoskeletal: No deformity, non-tender to palpation, grossly normal range of motion, muscle strength strong and equal, peripheral pulse strong, trace edema and lower extremities, no cyanosis, normal gait and station Patient screened in triage and initial orders placed. Additional care and disposition to be based upon diagnostic testing and treatment. <Cecil Vazquez APRN - Last Filed: 05/30/23 13:10> Source: patient <Cecil Vazquez APRN - Last Filed: 05/30/23 13:10> Mode of arrival: ambulatory <Cecil Vazquez APRN - Last Filed: 05/30/23 13:10> Limitations: no limitations <Cecil Vazquez APRN - Last Filed: 05/30/23 13:10> History of Present Illness HPI Narrative: Agree with the above HPI. <Sanket Chaney MD - Last Filed: 05/30/23 15:51> Related Data Allergies/Adverse Reactions: Allergies Allergy/AdvReac Type Severity Reaction Status Date / Time buspirone [From BuSpar] AdvReac Mild Dizziness Verified 11/17/22 13:08 amoxicillin AdvReac Unknown Nausea and Verified 11/17/22 13:08 Vomiting duloxetine [From Cymbalta] AdvReac Hallucinati Verified 11/17/22 13:08 ng <Cecil Vazquez APRN - Last Filed: 05/30/23 13:10> Review of Systems Review of Systems: All systems reviewed & are unremarkable except as noted in HPI and below <Sanket Chaney MD - Last Filed: 05/30/23 15:51> Constitutional: Constitutional: Reports no additional constitutional complaints <Sanket Chaney MD - Last Filed: 05/30/23 15:51> ENT: Reports dizziness, Denies nasal congestion and Denies sore throat <Sanket Chaney MD - Last Filed: 05/30/23 15:51> Cardiovascular: Cardiovascular: Reports no additional cardiovascular complaints <Sanket Chaney MD - Last Filed: 05/30/23 15:51> Respiratory: Respiratory: Reports no additional respiratory complaints <Sanket Chaney MD - Last Filed: 05/30/23 15:51> Gastrointestinal: Gastrointestinal: Reports no additional gastrointestinal complaints <Sanket Chaney MD - Last Filed: 05/30/23 15:51> Musculoskeletal: Musculoskeletal: Denies arthralgias and Denies joint swelling <Sanket Chaney MD - Last Filed: 05/30/23 15:51> Comments: leg swelling <Sanket Chaney MD - Last Filed: 05/30/23 15:51> PMFSH Past Medical History Medical History: Medical History Anxiety and depression Major depressive disorder Morbid obesity with BMI of 45.0-49.9, adult Suppression of menstruation <Cecil Vazquez APRN - Last Filed: 05/30/23 13:10> Surgical History Surgical History: Surgical History History of endoscopy [place] teeth removed <Cecil Vazquez APRN - Last Filed: 05/30/23 13:10> Family History Family History: Family H
--- NOTE | 2023-05-30 13:21 | ECG_ITS ---
Measurements Intervals [place] Rate: 88 P: 35 OK: 146 QRS: 17 QRSD: 101 T: 24 QT: 354 QTc: 399 Interpretive Statements SINUS RHYTHM NORMAL ECG SEE SCANNED COPY FOR SIGNATURE MTDD
[2023-05-30 13:42] LABS: Glucose Point of Care 90 mg/dl (65-105)
[2023-05-30 13:56] LABS: Basophils Absolute Auto 0.1 K/mm3 (0.0-0.1); Basophils Percent Auto 0.5 % (0.2-1.2); Eosinophils Absolute Auto 0.3 K/mm3 (0-0.3); Eosinophils Percent Auto 3.6 % (0-4.4); Hemoglobin 14.9 g/dL (12.0-15.0); Immature Granulocyte Absolute 0.02 K/mm3 (0.00-0.031); Immature Granulocyte Percent A 0.2 % (0-0.5); Lymphocytes Absolute Auto 2.33 K/mm3 (0.9-3.2); Lymphocytes Percent Auto 25.4 % (18.3-44.2); Mean Corpuscular HGB Conc 32.4 g/dl (32-36); Mean Corpuscular Hemoglobin 27.8 pg (26-34); Mean Corpuscular Volume 85.8 fl (80-100); Mean Platelet Volume 9.2 fl (7.4-10.4); Monocytes Absolute Auto 0.6 K/mm3 (0.1-0.6); Monocytes Percent Auto 6.5 % (2.6-8.5); Neutrophils Absolute Auto 5.9 K/mm3 (1.3-6.7); Neutrophils Percent Auto 63.8 % (45.5-73.1); Platelet Count Result 337 k/mm3 (150-375); Red Blood Count 5.36 M/mm3 (4.2-5.4); Red Cell Distribution Width 13.1 % (11.5-14.5); White Blood Count 9.2 K/mm3 (4.5-10.0)
[2023-05-30 13:57] LABS: Appearance Urine Clear (Clear); Bacteria Urine 1+ /hpf; Bilirubin Urine Negative (Negative); Blood Urine Negative (Negative); Color Urine Yellow (Yellow); Glucose Urine UA Negative (Negative); Ketones Urine Negative (Negative); Leukocyte Esterase Ur 2+ LEU/UL (Negative); Nitrate Urine Negative (Negative); Non Pathogenic Casts 0-2; Protein Urine Negative (Negative); RBC Urine 0-2 /hpf (0-2); Squamous Epithelial Cell Urine Few /hpf (Few); Urobilinogen Urine 0.2 mg/dL (<2.0); pH Urine 5.5 (5.0-9.0)
[2023-05-30 14:25] LABS: Add Urine Microscopic? YES
[2023-05-30 14:37] LABS: CRP 2.6 mg/dL (<1.0)
[2023-05-30 14:38] LABS: Alanine Aminotransferase 39 U/L (6-35); Alkaline Phosphatase 89 U/L (38-126); Anion Gap 10 mmol/L (4-12); Aspartate Amino Transferase 44 U/L (14-36); Bilirubin,Total 0.8 mg/dL (0.2-1.3); Blood Urea Nitrogen 13 mg/dL (7-17); Calcium 9.5 mg/dL (8.4-10.2); Carbon Dioxide 24 mmol/L (22-30); Chloride 104 mmol/L (98-107); Estimated CRCL calculation 177 ml/min; Estimated Glomerular Filt Rate > 60; Glucose 80 mg/dL (65-110); Magnesium 2.1 mg/dL (1.6-2.3); Potassium 4.2 mmol/L (3.4-5.0); Sodium 138 mmol/L (137-145)
[2023-05-30 14:48] LABS: NT Pro B Type Natriuretic Pept 33 pg/mL (19.9-100); Troponin I < 0.012 ng/mL (0.000-0.034)
[2023-05-30] MEDS: SODIUM CHLORIDE 0.9% IV 1,000 ML 999 ML IV CONT (15:13)
[2023-05-30 15:23] LABS: Erythrocyte Sedimentation Rate 9 mm/hr (0-20)
== END 2023-05-30 16:00 | disposition home or self-care (01) ==
PROVIDERS: Nurse Practitioner Family; Emergency Provider Emergency Medicine; Referring Provider Family Medicine
DX: N39.0 Urinary tract infection, site not specified (principal); R60.0 Localized edema; E66.01 Morbid (severe) obesity due to excess calories; Z68.43 Body mass index [BMI] 50.0-59.9, adult
CPT/HCPCS: 36415; 80053; 81001; 81025; 82948; 83735; 83880; 84484; 85025; 85652; 86140; 87086; 93005; 96360; 99284; J7030

== ENCOUNTER 2023-07-06 08:24 | Emergency (ER) | payer OTHER, SELFPAY ==
[2023-07-06] VITALS (7 sets, daily range): BP systolic 107–122; BP diastolic 82–89; PULSE 91–103; RESP 18–22; TEMP 36.6; O2SAT 99–100
--- NOTE | 2023-07-06 08:41 | ED.GENADULT ---
HPI - General Adult General Chief complaint: Unspecified Stated complaint: Bilateral ankle swelling, SOB, UTI sx Time Seen by Provider: 07/06/23 08:33 History of Present Illness HPI narrative: Patient presents here with lower extremity edema, dysuria, ongoing for last few months. She states that she has been to multiple ERs and urgent cares to try to get any answer including a visit here. She was told to try compression stockings but has not tried them yet. She does state that her at night she will try her feet up and that this does help with the swelling but that she is moving around and walking around during the day it has become more swollen. She says that she thinks she is dehydrated because she only drinks 2 bottles of water a day but she does not feel thirsty.. Related Data Allergies Allergy/AdvReac Type Severity Reaction Status Date / Time buspirone [From BuSpar] AdvReac Mild Dizziness Verified 11/17/22 13:08 amoxicillin AdvReac Unknown Nausea and Verified 11/17/22 13:08 Vomiting cephalexin AdvReac Confusion Verified 07/06/23 08:46 ciprofloxacin AdvReac Confusion Verified 07/06/23 08:46 duloxetine [From Cymbalta] AdvReac Hallucinati Verified 11/17/22 13:08 ng Review of Systems Review of Systems: All systems reviewed & are unremarkable except as noted in HPI and below PMFSH Past Medical History Medical History Anxiety and depression Major depressive disorder Morbid obesity with BMI of 45.0-49.9, adult Suppression of menstruation Surgical History Surgical History History of endoscopy [place] teeth removed Family History Family History Mother Heart disease Other Ovarian carcinoma maternal aunt Grandparent Acute myocardial infarction maternal grandmother Cerebrovascular accident maternal grandmother Heart disease History of open heart surgery Father Seizures Social History Social History Smoking status: Never smoker Alcohol intake: never Substance use: never Substance use type: marijuana Last use: 07/2020 Living arrangements: with family Additional living arrangements comments: grandfather Occupation/Education: unemployed Gender identity (if verbalized by the patient): Female Sexual Orientation (if Verbalized by the Patient): Straight or Heterosexual Spiritual care concerns: No Course Vital Signs Vital signs: Vital Signs Temperature 97.8 F 07/06/23 08:37 Pulse Rate 94 07/06/23 08:37 Respiratory Rate 20 07/06/23 08:37 Blood Pressure 107/85 07/06/23 08:37 Pulse Oximetry 100 07/06/23 08:37 Oxygen Delivery Room Air 07/06/23 08:37 Temperature 97.8 F 07/06/23 08:37 Pulse Rate 103 H 07/06/23 09:02 Respiratory Rate 22 H 07/06/23 09:02 Blood Pressure 117/82 07/06/23 09:02 Pulse Oximetry 100 07/06/23 09:02 Oxygen Delivery Room Air 07/06/23 08:37 Medical Decision Making MDM Narrative Medical decision making narrative: 27F presents with concern for 2 months of feet swelling and concern for dysuria and dehydration. She is well-appearing here in no distress, speaking full sentences, both legs/feet very minimally swollen without any leg tenderness/unilateral swelling or Shaan's sign. I did obtain UA to rule out UTI since patient thought she had one, which was negative; I did explain to the patient that there did not seem to be any signs of infection here but that since she has been having some itching sensation that for a month or more, that there could be other explanations for this including Bactrim vaginosis or yeast infection. Urinalysis also without ketones and not dark, I did explain to patient that there was no bacteria, blood, or WBC that would make me suspicious
[2023-07-06 09:02] LABS: Appearance Urine Cloudy (Clear); Bacteria Urine None Seen /hpf; Bilirubin Urine Negative (Negative); Blood Urine Negative (Negative); Color Urine Yellow (Yellow); Glucose Urine UA Negative (Negative); Ketones Urine Negative (Negative); Leukocyte Esterase Ur Trace LEU/UL (Negative); Nitrate Urine Negative (Negative); Non Pathogenic Casts 0-2; Protein Urine Negative (Negative); RBC Urine 0-2 /hpf (0-2); Specific Grav Ur 1.028 (1.001-1.035); Squamous Epithelial Cell Urine Few /hpf (Few); WBC Urine 0-5 /hpf (0-3); pH Urine 5.5 (5.0-9.0)
[2023-07-06 09:19] LABS: Add Urine Microscopic? YES
--- NOTE | 2023-07-06 09:48 | PC.NURSE ---
Pt reports she has been seen in multiple ER visits over the past six weeks without getting any answers. Pt was getting increasingly frustrated as MD Paredes was examining/speaking with her as she was demanding fluids because she felt she has been dehydrated with a dry mouth and can't drink water . Pt was wanting answers to her multiple complaints in this visit. Pt was not understanding how MD Paredes was explaining, stated she was very frustrated that we're not treating her problems, and stated If you're not giving me fluids I'm leaving as she removed herself from the monitor and gathered her things to leave. This RN spoke with pt after MD left the room, calmed pt down, and was able to further explain that we are not dismissing her symptoms and complaints, and further explained what these symptoms could represent and what testing will be done outpatient with her PCP, as well as what she can do in the mean time to treat symptoms. Pt was able to be calmed and asked RN further questions until gaining understanding. Pt asked for Rx for yeast infection and verbalized understanding on following up with PCP regarding ankle swelling and her concern with hypoglycemia/dry mouth.
== END 2023-07-06 10:15 | disposition home or self-care (01) ==
PROVIDERS: Emergency Provider Emergency Medicine
DX: R30.0 Dysuria (principal); R60.0 Localized edema; F41.8 Other specified anxiety disorders; E66.01 Morbid (severe) obesity due to excess calories; Z68.43 Body mass index [BMI] 50.0-59.9, adult
CPT/HCPCS: 81001; 99283

== ENCOUNTER 2023-12-07 08:04 | Emergency (ER) | payer OTHER, SELFPAY ==
--- NOTE | ~2023-12-07 | CT_ITS ---
CT of the Abdomen and Pelvis: Indication: Abdominal pain Technique: 2.5 mm axial scans were obtained through the abdomen and pelvis following intravenous adm inistration of 100 cc of Omnipaque 350. Dose reduction technique was used on this scan by utilizing a utomated exposure control and iterative reconstruction technique. The dose-length product (DLP) was 1 648.77 mGy-cm. COMPARISON: 01/25/2022 Findings: Scans through the lung bases demonstrates stable 5 mm pleural-based right lower lobe pulmo nary nodule. The liver, spleen, pancreas, gallbladder, adrenals and kidneys are within normal limits. No evidence of aortic aneurysm. No lymphadenopathy. No bowel obstruction or bowel wall thickening. There is no evidence to suggest acute appendicitis. Images through the pelvis were performed. Urinary bladder unremarkable. 2.5 cm right ovarian cyst pre sent. No other adnexal mass seen. No ascites. Impression: No significant abnormality evident. 2.5 cm right ovarian cyst is likely within normal limits given pa tient age. Stable 5 mm right basilar pulmonary nodule. Stability over this time intervals compatible with benign ity. Reviewed, dictated and finalized at location . Impression: No significant abnormality evident. 2.5 cm right ovarian cyst is likely within normal limits given patient age. Stable 5 mm right basilar pulmonary nodule. Stability over this time intervals compatible with benignity.
--- NOTE | ~2023-12-07 | US_ITS ---
EXAMINATION: US pelvic complete w TV INDICATION: Right ovarian cyst Comparison:CT dated 12/07/2023 TECHNIQUE: Multiple transabdominal and endovaginal sonographic images of the pelvis performed. FINDINGS: The uterus measures 7.1 x 3.9 x 5.2 cm. The endometrial complex measures 10 mm. The right ovary measures 4.5 x 3 x 3 cm and the left ovary measures 3.1 x 2.3 x 1.6 cm. There is a hy poechoic mass of the right ovary measuring 2.5 cm, likely hemorrhagic cyst. There are small follicles in each ovary. Normal doppler signal in both ovaries. There is trace free fluid in the pelvis. There are no abnormal masses seen on either side. IMPRESSION: 1. Hypoechoic mass of the right ovary measuring 2.5 cm, likely hemorrhagic cyst. 2: Trace free fluid in the pelvis, likely physiologic. Reviewed, dictated and finalized at location B. IMPRESSION: 1. Hypoechoic mass of the right ovary measuring 2.5 cm, likely hemorrhagic cyst . 2: Trace free fluid in the pelvis, likely physiologic.
[2023-12-07 08:18] VITALS: BP 132/53; PULSE 98; RESP 18; TEMP 36.9
[2023-12-07 08:44] VITALS: BP 116/101; PULSE 68; RESP 16; TEMP 36.6; O2SAT 98
[2023-12-07 08:58] LABS: Basophils Absolute Auto 0.1 K/mm3 (0.0-0.1); Basophils Percent Auto 0.9 % (0.2-1.2); Eosinophils Absolute Auto 0.2 K/mm3 (0-0.3); Eosinophils Percent Auto 2.8 % (0-4.4); Hematocrit 44.7 % (37.0-47.0); Immature Granulocyte Absolute 0.03 K/mm3 (0.00-0.031); Immature Granulocyte Percent A 0.4 % (0-0.5); Lymphocytes Absolute Auto 2.11 K/mm3 (0.9-3.2); Lymphocytes Percent Auto 30.1 % (18.3-44.2); Mean Corpuscular HGB Conc 33.6 g/dl (32-36); Mean Corpuscular Hemoglobin 28.4 pg (26-34); Mean Corpuscular Volume 84.5 fl (80-100); Mean Platelet Volume 8.8 fl (7.4-10.4); Monocytes Absolute Auto 0.5 K/mm3 (0.1-0.6); Neutrophils Absolute Auto 4.1 K/mm3 (1.3-6.7); Neutrophils Percent Auto 58.8 % (45.5-73.1); Platelet Count Result 240 k/mm3 (150-375); Red Blood Count 5.29 M/mm3 (4.2-5.4); Red Cell Distribution Width 13.2 % (11.5-14.5)
[2023-12-07 09:06] LABS: Add Urine Microscopic? YES; Appearance Urine Cloudy (Clear); Bacteria Urine 1+ /hpf; Bilirubin Urine Negative (Negative); Blood Urine Negative (Negative); Color Urine Dark Yellow (Yellow); Glucose Urine UA Negative (Negative); Ketones Urine Trace mg/dL (Negative); Leukocyte Esterase Ur 1+ LEU/UL (Negative); Nitrate Urine Negative (Negative); Non Pathogenic Casts 0-2; Protein Urine Negative (Negative); RBC Urine 0-2 /hpf (0-2); Specific Grav Ur 1.025 (1.001-1.035); Squamous Epithelial Cell Urine Moderate /hpf (Few)
[2023-12-07 09:13] LABS: Alanine Aminotransferase 28 U/L (6-35); Albumin Level 4.5 g/dL (3.5-5.1); Alkaline Phosphatase 81 U/L (38-126); Anion Gap 10 mmol/L (4-12); Aspartate Amino Transferase 27 U/L (14-36); Blood Urea Nitrogen 11 mg/dL (7-17); Calcium 9.3 mg/dL (8.4-10.2); Carbon Dioxide 24 mmol/L (22-30); Chloride 105 mmol/L (98-107); Estimated CRCL calculation 173 ml/min; Estimated Glomerular Filt Rate > 60; Glucose 117 mg/dL (65-110); Lipase 84 U/L (23-300); Potassium 3.9 mmol/L (3.4-5.0); Sodium 139 mmol/L (137-145)
[2023-12-07 09:15] VITALS: BP 158/90; PULSE 70; RESP 18; O2SAT 97
--- NOTE | 2023-12-07 09:39 | ED.ABDPAIN ---
HPI - Abdominal Pain General Chief Complaint: Abdominal Pain Stated Complaint: abdominal pain Time Seen by Provider: 12/07/23 08:59 Source: patient Mode of arrival: ambulatory Limitations: no limitations History of Present Illness HPI narrative: patient is a 27-year-old female who presents the ED with report of lower abdominal pain. Patient reports pain has been fairly constant since Sunday. States Sunday was the most severe episode of pain. She has not taken anything for pain. She was seen in urgent care last week for dark colored urine, urinary frequency and diagnosed with the UTI. She was prescribed Macrobid, but discontinued this on her own. She did not finish the antibiotics. She complains of intermittent nausea, loose stools, states she feels dehydrated. Denies current dysuria, hematuria, rectal bleeding, vomiting, fevers. Related Data Allergies Allergy/AdvReac Type Severity Reaction Status Date / Time buspirone [From BuSpar] AdvReac Mild Dizziness Verified 11/17/22 13:08 amoxicillin AdvReac Unknown Nausea and Verified 11/17/22 13:08 Vomiting cephalexin AdvReac Confusion Verified 07/06/23 08:46 ciprofloxacin AdvReac Confusion Verified 07/06/23 08:46 duloxetine [From Cymbalta] AdvReac Hallucinati Verified 11/17/22 13:08 ng Review of Systems Review of Systems: All systems reviewed & are unremarkable except as noted in HPI. All systems reviewed & are unremarkable except as noted in HPI and below PMFSH Past Medical History Medical History Anxiety and depression Major depressive disorder Morbid obesity with BMI of 45.0-49.9, adult Suppression of menstruation Surgical History Surgical History History of endoscopy [place] teeth removed Family History Family History Mother Heart disease Other Ovarian carcinoma maternal aunt Grandparent Acute myocardial infarction maternal grandmother Cerebrovascular accident maternal grandmother Heart disease History of open heart surgery Father Seizures Social History Social History Smoking status: Never smoker Alcohol intake: never Substance use: never Substance use type: marijuana Last use: 07/2020 Living arrangements: with family Additional living arrangements comments: grandfather Occupation/Education: unemployed Gender identity (if verbalized by the patient): Female Sexual Orientation (if Verbalized by the Patient): Straight or Heterosexual Spiritual care concerns: No Exam Narrative: GENERAL: Well appearing, morbidly obese with BMI of 47.2, non-toxic, in no acute distress. HEAD: Normocephalic, atraumatic. RESPIRATORY: Airway patent, respirations nonlabored. Clear to auscultation bilaterally, no rales, rhonchi, wheezing. CARDIOVASCULAR: Regular rate and rhythm without murmurs, rubs, or gallops. ABDOMINAL: Soft, mild diffuse tenderness throughout lower abdomen. No significant focal tenderness, nondistended. Normoactive BS. MUSCULOSKELETAL: Moves all extremities. No gross deformities. SKIN: Warm, dry, normal color. NEURO: A&O X3. Speech clear. Cranial nerves II-XII grossly intact. Steady gait. No ataxic movements. PSYCHIATRIC: Appropriate mood and affect. Normal interaction. Course Vital Signs Vital signs: Vital Signs Temperature 98.4 F 12/07/23 08:18 Pulse Rate 98 12/07/23 08:18 Respiratory Rate 18 12/07/23 08:18 Blood Pressure 132/53 L 12/07/23 08:18 Temperature 98.1 F 12/07/23 12:56 Pulse Rate 100 12/07/23 12:56 Respiratory Rate 18 12/07/23 12:56 Blood Pressure 118/64 12/07/23 12:56 Pulse Oximetry 100 12/07/23 12:56 MDM - Abdominal Pain MDM Narrative Medical decision making narrative: Patient armaan
[2023-12-07 09:40] LABS: BEDSIDEPREGUCG Negative (Negative)
--- NOTE | 2023-12-07 09:44 | PC.NURSE ---
In room H3 with pt to answer questions regarding lab results. Pt is agitated and insulting and rude to this RN, vamsi Ponce and SUKI Araiza. Pt informed labs results are back and informed of kidney function numbers. Pt keeps saying I'm dehydrated I've been dehydrated my whle life. PA informed pt she would review her labs and if lab work indicated dehydration she would order her fluids. PA informed pt she would not order fluids if labs did not indicate dehydration due to national shortage of IVF. Pt refusing tylenol but rates abd pain 01/28. Pt does not appear uncomfortable resting on cot, FLACC 0 per objective observation
[2023-12-07 10:00] VITALS: BP 154/94; PULSE 72; RESP 18; TEMP 36.6; O2SAT 98
[2023-12-07 11:00] VITALS: BP 148/94; PULSE 72; RESP 16; TEMP 36.6; O2SAT 98
[2023-12-07 12:56] VITALS: BP 118/64; PULSE 100; RESP 18; TEMP 36.7; O2SAT 100
== END 2023-12-07 12:57 | disposition home or self-care (01) ==
PROVIDERS: Student in an Organized Health Care Education/Training Program; Emergency Provider Physician Assistant
DX: N30.00 Acute cystitis without hematuria (principal); N83.201 Unspecified ovarian cyst, right side; E66.01 Morbid (severe) obesity due to excess calories; Z68.42 Body mass index [BMI] 45.0-49.9, adult
CPT/HCPCS: 36415; 74177; 76830; 76856; 80053; 81001; 81025; 83690; 85025; 87086; 99284; Q9967

== ENCOUNTER 2024-05-01 09:01 | Emergency (ER) | payer SELFPAY ==
[2024-05-01 09:23] VITALS: BP 137/98; PULSE 97; RESP 18; TEMP 36.4; O2SAT 98
[2024-05-01 09:32] VITALS: BP 137/94; PULSE 97; RESP 16; O2SAT 98
[2024-05-01 09:36] LABS: BEDSIDEPREGUCG Negative (Negative)
[2024-05-01 09:49] LABS: Add Urine Microscopic? YES; Appearance Urine Cloudy (Clear); Bacteria Urine 1+ /hpf; Bilirubin Urine Negative (Negative); Blood Urine Negative (Negative); Color Urine Yellow (Yellow); Glucose Urine UA Negative (Negative); Ketones Urine Trace mg/dL (Negative); Leukocyte Esterase Ur Trace LEU/UL (Negative); Nitrate Urine Negative (Negative); Non Pathogenic Casts 0-2; Protein Urine Negative (Negative); RBC Urine 0-2 /hpf (0-2); Specific Grav Ur 1.032 (1.001-1.035); Squamous Epithelial Cell Urine Moderate /hpf (Few); WBC Urine 0-5 /hpf (0-3); pH Urine 5.5 (5.0-9.0)
--- OUTSIDE RECORDS SUMMARY | 2024-05-01 09:55 | XMS_ITS | CONTINUITY OF CARE DOCUMENT ---
Author Name macykalebsukhjinder Address Unknown Organization [place] Office Address [address] [facility] [address] [place] [address] Phone [phone] Care Team Providers Care Lead Designer Name Role Phone Benji Tan MD Unavailable FARHAT HU MD Unavailable FARHAT HU MD Unavailable INSURANCE PROVIDERS Payer name Policy type / Coverage type [place] red republican [employer] MEDICAID Medicaid [id number]
--- NOTE | 2024-05-01 10:00 | PC.NURSE ---
Pt refusing to where gown or have VS taken again. States I have anxiety and it causes me too much stress. Also refusing SLN insertion and blood draw.
[2024-05-01 10:07] LABS: BEDSIDEPREGUCG Negative (Negative)
--- NOTE | 2024-05-01 10:12 | ED.FEMALEGU ---
HPI - Female Genitourinary General Chief complaint: Urogenital-Female Stated complaint: bilateral ear pain, uti & dehydration Time Seen by Provider: 05/01/24 09:24 History of Present Illness HPI Narrative: 28-year-old female with history of anxiety, MDD, morbid obesity presents to the emergency department for multiple medical complaints. Patient is concerned she has urinary tract infection and is dehydrated. She states her urine has been dark and cloudy. She is also endorsing dysuria and urinary frequency for the past 2 weeks as well as some suprapubic abdominal cramping intermittently. Patient is reporting chronic bilateral ear fullness and pain for which she has been seen several times at our emergency department and outside ERs and urgent cares. Patient states she has been told several times that she has fluid on her ears and was referred to ENT. She states she saw an ENT at [place] and was told that her ears looked okay. Patient states that she feels she needs a new ENT. Today she is reporting fullness and pain to the right ear that has been ongoing for several weeks. She states she intermittently takes Zyrtec with minimal improvement. Patient states she is concerned she is dehydrated. States or times agrees to drink fluids symptoms nauseous. She has not followed up with a PCP. Related Data Allergies Allergy/AdvReac Type Severity Reaction Status Date / Time buspirone (From BuSpar) AdvReac Mild Dizziness Verified 05/01/24 09:34 amoxicillin AdvReac Unknown Nausea and Verified 05/01/24 09:34 Vomiting cephalexin AdvReac Confusion Verified 05/01/24 09:34 ciprofloxacin AdvReac Confusion Verified 05/01/24 09:34 duloxetine (From Cymbalta) AdvReac Hallucinati Verified 05/01/24 09:34 ng Review of Systems Review of Systems: All systems reviewed & are unremarkable except as noted in HPI and below PMFSH Past Medical History Medical History Morbid obesity with BMI of 45.0-49.9, adult Major depressive disorder Anxiety and depression Suppression of menstruation Surgical History Surgical History [place] teeth removed History of endoscopy Family History Family History Mother Heart disease Other Ovarian carcinoma maternal aunt Grandparent Acute myocardial infarction maternal grandmother Cerebrovascular accident maternal grandmother Heart disease History of open heart surgery Father Seizures Social History Social History Smoking status: Current every day smoker Alcohol intake: never Substance use: never Substance use type: marijuana Last use: 07/2020 Living arrangements: with family Additional living arrangements comments: grandfather Occupation/Education: unemployed Gender identity (if verbalized by the patient): Female Sexual Orientation (if Verbalized by the Patient): Straight or Heterosexual Spiritual care concerns: No Exam Narrative: GENERAL: Well-appearing, well-nourished, and in no acute distress. Morbidly obese HEAD: Normocephalic, atraumatic. EYES: PERRLA and EOMI. ENT: Nares clear, no rhinorrhea or epistaxis. Mucous membranes moist. Left TM is ashby nonbulging with normal canal. Right TM is ashby with effusion, no bulging or erythema, normal canal NECK: Supple. CHEST: Clear to auscultation. No respiratory distress. HEART: Regular rate and rhythm. No murmur heard. Normal peripheral pulses. ABDOMEN: Soft, nontender, nondistended, normal active bowel sounds. No rebound, guarding or rigidity, no CVA tenderness EXTREMITIES: Normal range of motion. No edema. SKIN: Warm, dry, no rash. NEURO: No focal deficits. Alert and oriented x3 Course Vital Signs Vital signs: Vital Signs Temperature 97.6 F 05/01/24 09:23 Pulse Rate 97 05/01/24 09:23 Respiratory Rate 18 05/01/24 09:23 Blood Pressure 137/98 H 05/01/24 09:23 Pulse Oximetry 98 05/01/24 09:23 Oxygen Delivery Room Air 05/01/24 09:23 Temperature 97.6 F 05/01/24 09:23 Pulse Rate 97 05/01/24 09:32 Respiratory Rate 16 05/01/24 09:32 Blood Pressure 137/94 H 05/01/24 09:32 Pulse Oximetry 98 05/01/24 09:32 Oxygen Delivery Room Air 05/01/24 09:23 MDM - Female Genitourinary MDM Narrative Medical decision making narrative: 28-year-old female presents to the emergency department for multiple medical complaints including acute on chronic right ear fullness and pain, concerns for dehydration and UTI. Vitals with elevated blood pressure 137/98, otherwise unremarkable. Patient is afebrile and nontoxic appearing resting comfortably in exam bed. Exam is significant for a right TM effusion without evidence of acute otitis media. Mucous membranes are moist. Patient is reporting intermittent lower see proven pubic abdominal cramping, however on exam her abdomen is soft and nontender with normoactive bowel sounds. No CVA tenderness. is negative. UA shows trace ketones, trace leuk esterase, 1+ bacteria, no rbc's or wbc's, moderate squamous cells. Patient updated on results. She is requesting IV fluids for dehydration. I discussed that her urine does not appear remarkably dehydrated and that she has trace ketones, however normal specific gravity and does not appear to be dehydrated on exam. I discussed that I am happy to prescribe her Zofran for her nausea in order for her to increase her oral fluid intake. Patient declined Zofran in the ER and is frustrated that I am not providing IV fluids. I discussed there is a fluid shortage and I do not feel strongly that she requires IV fluids at this time. Additionally, I discussed the remainder of her UA results, notably that it is a contaminated sample and there are no wbc's, however if she is having reported symptoms of suprapubic cramping, dysuria and urinary frequency that we can treat for a UTI pending urine culture results. Pt is requesting treatment. I did tell her that she has had several negative urine cultures, last positive being July of 2019, and that her repeat symptoms of UTI have not been due to true UTIs per culture results. I discussed that it is important that she follows up with PCP for further testing including workup for diabetes as I suspect this may be the source of her polyuria and polydipsia. Additionally, I discussed other etiologies such as STDs and bacterial vaginosis, however patient states she is not sexually active and does not believe she has BV. As for her chronic ear effusions, I will prescribe cetirizine and Flonase and provide follow-up for ENT. Return precautions provided. Patient discharged in stable condition. Lab Data Labs: Lab Results 05/01/24 05/01/24 05/01/24 Range/Units 09:30 09:35 10:05 Urine Color Yellow (Yellow) Urine Appearance Cloudy H (Clear) Urine pH 5.5 (5.0-9.0) Ur Specific [place] 1.032 (1.001-1.035) Urine Protein Negative (Negative) mg/dL Urine Glucose (UA) Negative (Negative) mg/dL Urine Ketones Trace H (Negative) mg/dL Ur Blood (Man) Negative (Negative) Urine Nitrate Negative (Negative) Urine Bilirubin Negative (Negative) Urine Urobilinogen 1.0 (<2.0) mg/dL Leukocyte Esterase Rfl Trace H (Negative) JENNIE/UL Urine RBC 0-2 (0-2) /hpf Urine WBC 0-5 (0-3) /hpf Ur Squamous Epith Cells Moderate (Few) /hpf Urine Bacteria 1+ H /hpf Urine Casts 0-2 POC Urine HCG, Qual Negative Negative (Negative) Discharge Plan Discharge Clinical Impression: Abnormal urinalysis Middle ear effusion Qualifiers: Laterality: right Qualified Code(s): H65.91 - Unspecified nonsuppurative otitis media, right ear Patient Disposition: Home, Self-Care Condition: Stable Instructions: Antibiotic Form, Fluid In The Ear (Serous Otitis Media) (ED) Additional Instructions: Please take antibiotics for a possible urinary tract infection while we wait for your urine culture results. Please drink plenty of fluids including water, Gatorade and Pedialyte. Follow up with the primary care provider for further testing. Take the Zyrtec and Flonase as directed for the fluid on your right ear and follow-up with an Ear Nose and Throat doctor. Return to the emergency department if you develop fever or other new or worsening symptoms. Patient Language: [place] Prescriptions: New ondansetron 4 mg tablet,disintegrating 4 mg PO Q8H Qty: 14 0RF sulfamethoxazole-trimethoprim 800-160 mg tablet 1 tablet PO Q12H Qty: 14 0RF cetirizine 10 mg tablet 10 mg PO DAILY Qty: 30 0RF fluticasone propionate [Flonase Allergy Relief] 50 mcg/actuation spray,suspension 1 spray intranasal Q12H Qty: 16 0RF Rx Instructions: administer into each nostril Follow-up/Referrals: Chinmay Meeks MD [Physician] - Leonardo Collins MD [Physician] - UNKNOWN,DOCTOR [Primary Care Provider] -
[2024-05-01] MEDS: IBUPROFEN 400 MG TABLET 800 MG PO (10:30)
--- OUTSIDE RECORDS SUMMARY | 2024-05-01 11:14 | XMS_ITS | CONTINUITY OF CARE DOCUMENT ---
Author Name macykalebsukhjinder Address Unknown Organization [place] Office Address [address] [facility] [address] [place] [address] Phone [phone] Care Team Providers Care Training And Development Coordinator Name Role Phone Benji Tan MD Unavailable FARHAT HU MD Unavailable [phone] FARHAT HU MD Unavailable [phone] INSURANCE PROVIDERS Payer name Policy type / Coverage type [place] red libertarian ID [employer]ALKER MEDICAID Medicaid [id number]
== END 2024-05-01 11:00 | disposition home or self-care (01) ==
PROVIDERS: Emergency Medicine; Emergency Provider Physician Assistant
DX: H93.8X1 Other specified disorders of right ear (principal); R82.998 Other abnormal findings in urine; E66.01 Morbid (severe) obesity due to excess calories; Z68.43 Body mass index [BMI] 50.0-59.9, adult; F41.9 Anxiety disorder, unspecified; F32.9 Major depressive disorder, single episode, unspecified; F17.200 Nicotine dependence, unspecified, uncomplicated
CPT/HCPCS: 81001; 81025; 99283; A9270

== ENCOUNTER 2024-07-13 01:25 | Emergency (ER) | payer MEDICAID, SELFPAY ==
--- NOTE | ~2024-07-13 | XR_ITS ---
CHEST RADIOGRAPH CLINICAL HISTORY: sob, dizziness, chills (rigors?), dizzy . COMPARISON: None available TECHNIQUE: Single portable view of the chest. FINDINGS The cardiomediastinal silhouette is unremarkable. The lungs are clear. Visualized osseous structures and soft tissues are unremarkable. IMPRESSION: No focal infiltrate or effusion. Reviewed, dictated and finalized at location A.
[2024-07-13 01:25] VITALS: BP 155/115; PULSE 116; RESP 15; TEMP 36.9; O2SAT 98
[2024-07-13 01:33] LABS: Glucose Point of Care 147 mg/dl (65-105)
--- OUTSIDE RECORDS SUMMARY | 2024-07-13 01:48 | XMS_ITS | CONTINUITY OF CARE DOCUMENT ---
Author Name macykalebsukhjinder Address Unknown Organization [place] Office Address [address] [facility] [address] [place] [address] Phone [phone] Care Team Providers Care Medical Accounts Receivable Specialist Name Role Phone Benji Tan MD Unavailable FARHAT HU MD Unavailable FARHAT HU MD Unavailable INSURANCE PROVIDERS Payer name Policy type / Coverage type [place] red [place] party ID [employer]ALKER MEDICAID Medicaid [id number]
--- OUTSIDE RECORDS SUMMARY | 2024-07-13 01:48 | XMS_ITS | Data Portability ---
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 then lorazepam which she doesn't like. didnt feel like herself.wants to get mental health in [place], living with a childhood friend and her .she was not able to schedule at [facility] d/t her need for sunday appts unwanted weight gain dad had thyroid problem doesnt weigh herself but feels stomach growing and clothes not fitting doesnt have a goal or baseline weight bullied as a child d/t weighttoday, reviewed normal labs except for early anemia, likely iron def chronic back painx many yearsno traumalow back, mid [place] prev txunable to exercise DEMETRIO Crook, PA-C [address] [place], [phone], [place] - [facility] 04/04/2019 17:21:42 04/24/2019 text/html depression f/u hx foster care x4 yearshx SI, no attempt but reports facing hosp for this.bio dad in an accident apr 09. zoila was the de facto POAhx of abuse from father--reconciled2 sibs in penitentiary for sub use, one on work releasebio mom active substance abuseno personal hx sub abusedoesnt like to be on medication--tried something for depression then lorazepam which she doesn't like. didnt feel like herself.wants to get mental health in order, living with a childhood friend and her .she was not able to schedule at [facility] d/t her need for sunday apptstoday, feeling better but unable to swallow the cymbalta capshasn't estab'd w/ counselor yet anemiafeb 20 hb 11.8 mcv 76 rdw 17 mch 24on fe 325 daily w/o adr x2-3 wks chronic back painx many yearsno traumalow back, mid lineno prev txunable to exercisesaw dr. hadley who started melox 7.5 but still in painis consider SI inject DEMETRIO Crook, PA-C [address] [place], [id number], [place] - [facility] 04/24/2019 19:31:06 OBGyn Episode No OBEpisode recorded.
[2024-07-13 02:01] VITALS: BP 142/90; PULSE 97; RESP 16; O2SAT 98
--- NOTE | 2024-07-13 02:03 | ED_ITS ---
HPI - Anxiety General Chief Complaint: Anxiety Stated Complaint: anxiety/ hypoglycemic? Time Seen by Provider: 07/13/24 01:31 Source: patient Mode of arrival: EMS Limitations: no limitations History of Present Illness HPI narrative: Patient presents with increased anxiety as well as subjective hypoglycemia. Patient states she started having symptoms while she was sleeping. She talked to a friend on the phone and felt like she could not get her words out. She felt chilled and was shaky states she could not get warm. Patient states she has a history of hypoglycemic episodes but does not carry a diagnosis of diabetes mellitus. She has been told that her hyperglycemia is likely due to insulin resistance given her weight. She felt dizzy yesterday and is concerned for fluid in her ears. She visited urgent care approximately 2 weeks ago and was diagnosed with fluid in her ears and prescribed a Z pack but unable to take this as she states she has taken azithromycin so many times it no longer works. When she re-presented to the , she was told no fluid in her ears. Has previously seen ENT and been diagnosed with vertigo but exact etiology unknown. States she has intermittent tinnitus, not currently. She states that she had been prescribed Zyrtec for the fluid behind her ears previously but is not currently taking as she was unable to pick it up. That is her only new medication. Patient states several signs she feels anxious and has had increasing anxiety recently. The ambulance ride was especially the anxiety inducing as her grandfather recently and this happened in the back of an ambulance. She has a history of anxiety but is not on medication at baseline. She plans on discussing this with her primary care physician in her upcoming appointment on 07/23/2024. She is also due to discuss the hypoglycemia/insulin resistance with them at this time. She has a history of panic attacks and feels like she was having 1 this morning. No chest pain but she does note that she felt like her heart was racing. She states she was diagnosed with fatty liver but she does not to pursue this any further with any referrals or other discussion or workup of it because it stresses me out. Occasional constipation. States she chronically has shortness of breath but believes it is because she is overweight. Point of care glucose for EMS was 96 mg/dL. They note she said that she had a rag to cool down. No fevers. No cough, diarrhea, diaphoresis. Patient states she has had issues with disorientation ever since she delivered her child in 2021 Related Data Allergies Allergy/AdvReac Type Severity Reaction Status Date / Time buspirone (From BuSpar) AdvReac Mild Dizziness Verified 07/13/24 01:30 amoxicillin AdvReac Unknown Nausea and Verified 07/13/24 01:30 Vomiting cephalexin AdvReac Confusion Verified 07/13/24 01:30 ciprofloxacin AdvReac Confusion Verified 07/13/24 01:30 duloxetine (From Cymbalta) AdvReac Hallucinati Verified 07/13/24 01:30 ng PMFSH Past Medical History Medical History Morbid obesity with BMI of 45.0-49.9, adult Major depressive disorder Anxiety and depression Suppression of menstruation Surgical History Surgical History [place] teeth removed History of endoscopy Family History Family History Mother Heart disease Other Ovarian carcinoma maternal aunt Grandparent Acute myocardial infarction maternal grandmother Cerebrovascular accident maternal grandmother Heart disease History of open heart surgery Father Seizures Social History Social History (Updated 07/13/24 @ 17:44 by Christine Washington MD) Smoking status: Current every day smoker Alcohol intake: never Substance use: never Substance use type: unknown Last use: 07/2020 Living arrangements: with family Additional living arrangements comments: previously lived with grandfather Occupation/Education: unemployed Gender identity (if verbalized by the patient): Female Sexual Orientation (if Verbalized by the Patient): Straight or Heterosexual Spiritual care concerns: No Exam 2 Narrative: GENERAL: Well-appearing, well-nourished, and in no acute distress. HEAD: Normocephalic, atraumatic. EYES: Non injected, non icteric. Pupils grossly normal. ENT: No rhinorrhea or epistaxis. Gross auditory acuity intact. Patient does have 2 beat left nystagmus, fatigable and very mild. Right tympanic membrane easily visualized and normal including external auditory canal. Left external auditory canal normal without erythema or vesicles. Tympanic membrane on the left does have a small effusion but without bulging or erythema. NECK: Supple. No meningismus. CHEST: Speaking in full sentences. No respiratory distress. HEART: Regular rate and rhythm. ABDOMEN: Morbid obesity but Soft, nondistended. EXTREMITIES: Normal range of motion. SKIN: Warm, dry, no rash. NEURO: No focal deficits. Alert and oriented. Answering questions. Following commands. Normal speech without aphasia or dysarthria. Observed walking with steady gait, not ataxic, able to bear weight PSYCH: Congruent mood and affect. Appearance: Well kempt. Behavior: Anxious but good eye contact, in no acute distress. Speech: Appropriate rate, quantity and volume. Does not appear to be responding to internal stimuli Course Vital Signs Vital signs: Vital Signs Temperature 98.4 F 07/13/24 01:25 Pulse Rate 116 H 07/13/24 01:25 Respiratory Rate 15 07/13/24 01:25 Blood Pressure 155/115 H 07/13/24 01:25 Pulse Oximetry 98 07/13/24 01:25 Oxygen Delivery Room Air 07/13/24 01:25 Temperature 98.4 F 07/13/24 01:25 Pulse Rate 94 07/13/24 04:07 Respiratory Rate 17 07/13/24 04:07 Blood Pressure 142/90 H 07/13/24 02:01 Pulse Oximetry 98 07/13/24 04:07 Oxygen Delivery Room Air 07/13/24 01:25 MDM - Anxiety MDM Narrative Medical decision making narrative: Patient presents with increasing anxiety and subjective hypoglycemia although was not checked by herself. She states she has episodic hypoglycemia and not related to an official diagnosis of diabetes mellitus but due to insulin resistance secondary to her weight. POC glucose 96 mg/dL for EMS. In the emergency department she is afebrile with vital signs notable for hypertension and tachycardia. Patient refusing viral swab. Very mild leukocytosis. Patient is very anxious during history and physical, not tremulous but even stating how anxious she is several times. Considered that the chills and shakiness she described at home could be rigors but she is very well appearing on exam. Although she has a mild effusion behind the left tympanic membrane, there is no bulging, erythema, patient has not been febrile. Suspect this is viral and/or allergic, especially in an otherwise non immunosuppressed. She has 1+ bacteria, some white blood cells, and leukocyte esterase. She does endorse dysuria, urgency and frequency although no hematuria. Will give pyridium (we discussed the side effects) as well as an antibiotic. Patient is reassessed at 3:15 a.m.. Her dizziness is better although I do have lower suspicion that her dizziness is caused by BPPV explicitly. Given her anxiousness, I do think she would benefit more from second-line dizziness medication Valium and this is ordered. Patient feeling much better on reassessment. Nystagmus no longer present. Patient does report anxiety and appears anxious and has a recent stressor of the loss of her grandfather with whom she was very close. Short course of Valium ordered but we did discuss that this is a controlled substance and not a long- term strategy. Advised that she keep her upcoming appointment with her primary care physician and she verifies understanding. Stable for discharge. Lab Data Attestation: I reviewed the patient's lab results. Lab results narrative: Normal renal function. Electrolyte abnormalities. Normal liver function 07/13/24 02:46 07/13/24 02:46 Labs: Lab Results 07/13/24 07/13/24 07/13/24 Range/Units 01:31 02:44 02:46 WBC 10.8 H (4.5-10.0) K/mm3 RBC 5.17 (4.2-5.4) M/mm3 Hgb 14.0 (12.0-15.0) g/dL Hct 43.4 (37.0-47.0) % MCV 83.9 (80-100) fl MCH 27.1 (26-34) pg MCHC 32.3 (32-36) g/dl RDW 13.3 (11.5-14.5) % Plt Count 284 (150-375) k/mm3 MPV 9.0 (7.4-10.4) fl Immature Gran % (Auto) 0.2 (0-0.5) % Neut % (Auto) 63.1 (45.5-73.1) % Lymph % (Auto) 25.4 (18.3-44.2) % [place] % (Auto) 8.0 (2.6-8.5) % Eos % (Auto) 2.7 (0-4.4) % Baso % (Auto) 0.6 (0.2-1.2) % Lymph # (Auto) 2.73 (0.9-3.2) K/mm3 [place] # (Auto) 0.9 H (0.1-0.6) K/mm3 Eos # (Auto) 0.3 (0-0.3) K/mm3 Baso # (Auto) 0.1 (0.0-0.1) K/mm3 Abs Immat Gran (auto) 0.02 (0.00-0.031) K/mm3 Absolute Neuts (auto) 6.8 H (1.3-6.7) K/mm3 Absolute Nucleated RBC 0.000 (0.0-0.012) K/mm3 Nucleated RBC % 0.0 (0.0-0.2) % Sodium 140 (137-145) mmol/L Potassium 4.3 (3.4-5.0) mmol/L Chloride 107 (98-107) mmol/L Carbon Dioxide 23 (22-30) mmol/L Anion Gap 10 (4-12) mmol/L BUN 17 (7-17) mg/dL Creatinine 0.50 L (0.7-1.0) mg/dL Estim Creat Clear Calc 211 ml/min Estimated GFR > 60 (59 - ) Glucose 100 (65-110) mg/dL POC Capillary Glucose 147 H (65-105) mg/dl Calcium 9.7 (8.4-10.2) mg/dL Total Bilirubin 0.5 (0.2-1.3) mg/dL AST 29 (14-36) U/L ALT 26 (6-35) U/L Alkaline Phosphatase 68 (38-126) U/L NT-Pro-B Natriuret Pep < 20 (19.9-100) pg/mL Total Protein 8.0 (6.3-8.2) g/dL Albumin 4.7 (3.5-5.1) g/dL TSH 2.230 (0.465-4.680) uIU/mL Urine Color (Yellow) Urine Appearance (Clear) Urine pH (5.0-9.0) Ur Specific [place] (1.001-1.035) Urine Protein (Negative) mg/dL Urine Glucose (UA) (Negative) mg/dL Urine Ketones (Negative) mg/dL Ur Blood (Man) (Negative) Urine Nitrate (Negative) Urine Bilirubin (Negative) Urine Urobilinogen (<2.0) mg/dL Leukocyte Esterase Rfl (Negative) JENNIE/UL Urine RBC (0-2) /hpf Urine WBC (0-3) /hpf Ur Squamous Epith Cells (Few) /hpf Urine Bacteria /hpf Urine Casts Urine Test Negative Urine Opiates Screen Negative (Negative) Urine Methadone Screen Negative (Negative) Ur Barbiturates Screen Negative (Negative) Ur Phencyclidine Scrn Negative (Negative) Ur Amphetamine Screen Negative (Negative) U Benzodiazepines Scrn Negative (Negative) Urine Cocaine Screen Negative (Negative) U Cannabinoids Screen Negative (Negative) 07/13/24 07/13/24 Range/Units 02:46 03:51 WBC (4.5-10.0) K/mm3 RBC (4.2-5.4) M/mm3 Hgb (12.0-15.0) g/dL Hct (37.0-47.0) % MCV (80-100) fl MCH (26-34) pg MCHC (32-36) g/dl RDW (11.5-14.5) % Plt Count (150-375) k/mm3 MPV (7.4-10.4) fl Immature Gran % (Auto) (0-0.5) % Neut % (Auto) (45.5-73.1) % Lymph % (Auto) (18.3-44.2) % [place] % (Auto) (2.6-8.5) % Eos % (Auto) (0-4.4) % Baso % (Auto) (0.2-1.2) % Lymph # (Auto) (0.9-3.2) K/mm3 [place] # (Auto) (0.1-0.6) K/mm3 Eos # (Auto) (0-0.3) K/mm3 Baso # (Auto) (0.0-0.1) K/mm3 Abs Immat Gran (auto) (0.00-0.031) K/mm3 Absolute Neuts (auto) (1.3-6.7) K/mm3 Absolute Nucleated RBC (0.0-0.012) K/mm3 Nucleated RBC % (0.0-0.2) % Sodium (137-145) mmol/L Potassium (3.4-5.0) mmol/L Chloride (98-107) mmol/L Carbon Dioxide (22-30) mmol/L Anion Gap (4-12) mmol/L BUN (7-17) mg/dL Creatinine (0.7-1.0) mg/dL Estim Creat Clear Calc ml/min Estimated GFR (59 - ) Glucose (65-110) mg/dL POC Capillary Glucose 113 H (65-105) mg/dl Calcium (8.4-10.2) mg/dL Total Bilirubin (0.2-1.3) mg/dL AST (14-36) U/L ALT (6-35) U/L Alkaline Phosphatase (38-126) U/L NT-Pro-B Natriuret Pep (19.9-100) pg/mL Total Protein (6.3-8.2) g/dL Albumin (3.5-5.1) g/dL TSH Cancelled (0.465-4.680) uIU/mL Urine Color Yellow (Yellow) Urine Appearance Clear (Clear) Urine pH 5.5 (5.0-9.0) Ur Specific [place] 1.028 (1.001-1.035) Urine Protein Negative (Negative) mg/dL Urine Glucose (UA) Negative (Negative) mg/dL Urine Ketones Negative (Negative) mg/dL Ur Blood (Man) Negative (Negative) Urine Nitrate Negative (Negative) Urine Bilirubin Negative (Negative) Urine Urobilinogen 0.2 (<2.0) mg/dL Leukocyte Esterase Rfl 2+ H (Negative) JENNIE/UL Urine RBC 0-2 (0-2) /hpf Urine WBC 11-20 H (0-3) /hpf Ur Squamous Epith Cells Occasional (Few) /hpf Urine Bacteria 1+ H /hpf Urine Casts 0-2 Urine Test Urine Opiates Screen (Negative) Urine Methadone Screen (Negative) Ur Barbiturates Screen (Negative) Ur Phencyclidine Scrn (Negative) Ur Amphetamine Screen (Negative) U Benzodiazepines Scrn (Negative) Urine Cocaine Screen (Negative) U Cannabinoids Screen (Negative) Imaging Data Attestation: I personally reviewed and interpreted this imaging study as follows: My impression: Patient appears to have cardiomegaly/borderline cardiomegaly with some haziness and loss of costophrenic angle on the left although there is likely also contribution of body habitus obscuring full penetration Radiologist's impression: CXR Stat Rad: No acute cardiopulmonary process. ECG Data EKG #1: Attestation: I personally reviewed and interpreted this ECG as follows: ECG completion date: 07/13/24 ECG completion time: 02:26 Interpretation: Sinus tachycardia at a rate of 100 beats per minute. TX interval 134. QRS 102. QT/QTC 327/384. Good R-wave progression across the precordial leads. T-wave inversion in lead 3 but otherwise upright in normal in contiguous inferior leads 2 and AVF. No other T-wave inversions. Discharge Plan Discharge Clinical Impression: UTI (urinary tract infection), Dizziness, Dysuria, Anxiety, Acute effusion of left ear Patient Disposition: Home Condition: Stable Instructions: Antibiotic Form, Urinary Tract Infection in Women (DC), Dysuria (ED), Dizziness (ED), Anxiety (ED), Fluid In The Ear (Serous Otitis Media) (ED) Additional Instructions: Pyridium/phenazopyridine can help with the pain you are experiencing from a urinary tract infection. It can discolor your urine and tears (turn them orange). Do not wear contact lenses while taking this medication. Antibiotics have been prescribed for the urinary tract infection. A short course of Valium has been prescribed which helps with both dizziness as well as the anxiety you are experiencing after the loss of your loved one. Keep your upcoming appointment with her primary care physician to discuss this as well as the concerns you had discussed together regarding insulin resistance /hypoglycemia although you were not hypoglycemic for EMS or here. Return to the emergency department with any new worsening or unmanaged symptoms Patient Language: Luxembourgish Prescriptions: New sulfamethoxazole-trimethoprim [Bactrim DS] 800-160 mg tablet 1 tablet PO Q12H 5 Days Qty: 10 0RF phenazopyridine 100 mg tablet 100 mg PO TID PRN (Reason: pain) 2 Days Qty: 5 0RF Rx Instructions: after meals; received first dose in ED diazepam [Valium] 2 mg tablet 2 mg PO HS PRN (Reason: anxiety) Qty: 7 0RF No Action ondansetron 4 mg tablet,disintegrating 4 mg PO Q8H Qty: 14 0RF sulfamethoxazole-trimethoprim 800-160 mg tablet 1 tablet PO Q12H Qty: 14 0RF cetirizine 10 mg tablet 10 mg PO DAILY Qty: 30 0RF fluticasone propionate [Flonase Allergy Relief] 50 mcg/actuation spray,suspension 1 spray intranasal Q12H Qty: 16 0RF Rx Instructions: administer into each nostril Follow-up/Referrals: Cornelius,SUKI Wilson [Primary Care Provider] - Stand Alone Forms: Work/School Release IP Time of Disposition: 04:17
--- NOTE | 2024-07-13 02:13 | ECG_ITS ---
Test Date: 2024-07-13 02:26:59 Measurements Intervals Novelty Rate: 100 P: 29 OR: 134 QRS: 10 QRSD: 102 T: 30 QT: 327 QTc: 423 Interpretive Statements SINUS TACHYCARDIA ABNORMAL RHYTHM ECG No previous ECG available for comparison Electronically Signed On 07-13-2024 10:11:29 CDT by Derek Rodas M.D.
[2024-07-13] MEDS: MECLIZINE HCL 25 MG TABLET PO (02:39)
--- NOTE | 2024-07-13 02:40 | PC.NURSE ---
patient requests tylenol because she is hot and when she feels like this, that is what she needs . pt was given antivert and then stated, I am annoyed right now and I need some time . while pushing the medicaiton away. this rn explained to patient the medicaiton name and the uses for the medication.
[2024-07-13 02:52] LABS: Basophils Absolute Auto 0.1 K/mm3 (0.0-0.1); Basophils Percent Auto 0.6 % (0.2-1.2); Eosinophils Absolute Auto 0.3 K/mm3 (0-0.3); Eosinophils Percent Auto 2.7 % (0-4.4); Hematocrit 43.4 % (37.0-47.0); Immature Granulocyte Absolute 0.02 K/mm3 (0.00-0.031); Immature Granulocyte Percent A 0.2 % (0-0.5); Lymphocytes Absolute Auto 2.73 K/mm3 (0.9-3.2); Lymphocytes Percent Auto 25.4 % (18.3-44.2); Mean Corpuscular HGB Conc 32.3 g/dl (32-36); Mean Corpuscular Hemoglobin 27.1 pg (26-34); Mean Corpuscular Volume 83.9 fl (80-100); Monocytes Absolute Auto 0.9 K/mm3 (0.1-0.6); Neutrophils Absolute Auto 6.8 K/mm3 (1.3-6.7); Neutrophils Percent Auto 63.1 % (45.5-73.1); Platelet Count Result 284 k/mm3 (150-375); Red Blood Count 5.17 M/mm3 (4.2-5.4); Red Cell Distribution Width 13.3 % (11.5-14.5); White Blood Count 10.8 K/mm3 (4.5-10.0)
[2024-07-13 03:03] LABS: Add Urine Microscopic? YES; Alanine Aminotransferase 26 U/L (6-35); Albumin Level 4.7 g/dL (3.5-5.1); Alkaline Phosphatase 68 U/L (38-126); Anion Gap 10 mmol/L (4-12); Appearance Urine Clear (Clear); Aspartate Amino Transferase 29 U/L (14-36); Bacteria Urine 1+ /hpf; Bilirubin Urine Negative (Negative); Bilirubin,Total 0.5 mg/dL (0.2-1.3); Blood Urea Nitrogen 17 mg/dL (7-17); Blood Urine Negative (Negative); Calcium 9.7 mg/dL (8.4-10.2); Carbon Dioxide 23 mmol/L (22-30); Chloride 107 mmol/L (98-107); Color Urine Yellow (Yellow); Estimated CRCL calculation 211 ml/min; Estimated Glomerular Filt Rate > 60; Glucose 100 mg/dL (65-110); Glucose Urine UA Negative (Negative); Ketones Urine Negative (Negative); Leukocyte Esterase Ur 2+ LEU/UL (Negative); Nitrate Urine Negative (Negative); Non Pathogenic Casts 0-2; Potassium 4.3 mmol/L (3.4-5.0); Protein Urine Negative (Negative); RBC Urine 0-2 /hpf (0-2); Sodium 140 mmol/L (137-145); Specific Grav Ur 1.028 (1.001-1.035); Squamous Epithelial Cell Urine Occasional /hpf (Few); Urobilinogen Urine 0.2 mg/dL (<2.0); pH Urine 5.5 (5.0-9.0)
[2024-07-13 03:12] LABS: NT Pro B Type Natriuretic Pept < 20 pg/mL (19.9-100)
[2024-07-13] MEDS: diazePAM INJ (*CRX) 10 MG/2 ML SYRINGE 5 MG IV PUSH (03:37)
[2024-07-13] MEDS: PHENAZOPYRIDINE HCL 100 MG TABLET PO (03:38)
[2024-07-13 03:40] LABS: Amphetamine Screen Urine Negative (Negative); Barbiturate Screen Urine Negative (Negative); Benzodiazepines Screen Urine Negative (Negative); Cannabinoid Screen Urine Negative (Negative); Cocaine Screen Urine Negative (Negative); Methadone Screen Urine Negative (Negative); Opiate Screen Urine Negative (Negative); Phencyclidine Screen Urine Negative (Negative)
--- NOTE | 2024-07-13 03:45 | PC.NURSE ---
patient verbalizing that she wants to leave to go get some crackers because she knows her blood sugar is low and she knows her body more than anyone else . pt receiving IV valium that was ordered, this rn diluated 1mg of valium with 9mls of normal saline flush. pt then stating that she is extremely dizzy and believes it is because she is hypoglycemic.
[2024-07-13 03:49] VITALS: PULSE 93; RESP 20; O2SAT 98
[2024-07-13 03:53] LABS: Glucose Point of Care 113 mg/dl (65-105)
[2024-07-13 04:01] LABS: Pregnancy On Board Control Positive; Urine Pregnancy Test Negative
[2024-07-13 04:07] VITALS: PULSE 94; RESP 17; O2SAT 98
== END 2024-07-13 04:26 | disposition home or self-care (01) ==
PROVIDERS: Emergency Provider Student in an Organized Health Care Education/Training Program; PCP Physician Assistant Medical
DX: F41.9 Anxiety disorder, unspecified (principal); N39.0 Urinary tract infection, site not specified; R42 Dizziness and giddiness; H93.8X2 Other specified disorders of left ear; R00.0 Tachycardia, unspecified; F17.210 Nicotine dependence, cigarettes, uncomplicated; F32.A Depression, unspecified; E66.01 Morbid (severe) obesity due to excess calories; Z68.43 Body mass index [BMI] 50.0-59.9, adult
CPT/HCPCS: 36415; 71045; 80053; 80307; 81001; 81025; 82948; 83880; 84443; 85025; 87086; 93005; 96374; 99284; A9270; J3360